=== PATIENT | female | born 1995 | race African-American/Black ===

== ENCOUNTER 2018-03-10 21:25 | Emergency (ER) | payer BC, OTHER ==
[2018-03-10 22:43] LABS: Urine Blood 2+ (NEG); Urine Glucose NEGATIVE (NEG); Urine Protein TRACE (NEG); Urine Specific Gravity 1.025 (1.005-1.030); Urine pH 5.5 (5.0-7.0)
[2018-03-10] MEDS ORDERED: NA CHLORIDE 0.9% 1,000 ML ONE (23:35)
[2018-03-10] MEDS ORDERED: IBUPROFEN 200 MG TAB PO ONE (23:36)
[2018-03-11] LABS: Absolute Lymphocytes (CBC) 1.5 K/uL (0.7-4.9); Absolute Monocytes 0.3 K/uL (0.1-1.3); Absolute Neutrophil 6.3 K/uL (1.8-8.0); Basophils % 0.4 % (0-1.3); Eosinophils % 0.4 % (0-4.4); Hematocrit 36.3 % (36.0-45.0); Lymphocytes % 18.7 % (15.3-44.8); MCH 26.4 pg (27.0-35.0); MCV 81.7 fL (80-100); MPV 8.4 fL (7.6-11.3); Monocytes % 3.2 % (3.3-12.3); RBC Red Blood Cell Count 4.44 M/uL (3.86-4.86)
[2018-03-11 00:12] LABS: Potassium 3.4 mEq/L (3.6-5.0)
[2018-03-11 00:24] LABS: Urine Bacteria <20 /HPF (<20); Urine Culture Reflex Order REFLEXED
--- NOTE | 2018-03-11 01:20 | EDPHYS ---
Physician Documentation [facility] Name: Олег Newby Age: 22 yrs Sex: Female : 1995 Arrival Date: 03/10/2018 Time: 21:26 Bed 14 Private MD: ED Physician Abdelrahman Meyers HPI: 03/11 01:14 This 22 yrs old Black Female presents to ER via Ambulatory with complaints of Headache, rn Vomiting. 01:14 The patient complains of pain to the forehead. The patient describes the headache as rn aching. Onset: The symptoms/episode began/occurred this morning. Associated signs and symptoms: Pertinent positives: fever, nausea, vomiting, weakness, Pertinent negatives: altered mental status, dizziness, neck stiffness, paresthesias, rash, sinus tenderness, vision changes, vision loss, vertigo. Severity of symptoms: At its worst the pain was mild, in the emergency department the pain has improved. The patient has not experienced similar symptoms in the past. The patient has not recently seen a physician. Reports fever/chills/nausea/vomiting/congestion/back pain, began today, currently no headache/neck pain/abd pain. . 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 - Social history:: Smoking status: Patient/guardian denies using tobacco. - Ebola Screening: : No symptoms or risks identified at this time. - Family history:: not pertinent. - Hospitalizations: : No recent hospitalization is reported. ROS: 03/11 01:14 Constitutional: Negative for weight loss Eyes: Negative for injury, pain, redness, and consumer attorney, ENT: Negative for injury, pain, and discharge, Neck: Negative for injury, pain, and swelling, Cardiovascular: Negative for chest pain, palpitations, and edema, Respiratory: Negative for shortness of breath, cough, wheezing, and pleuritic chest pain, Abdomen/GI: Negative for abdominal pain constipation, Back: Negative for injury MS/Extremity: Negative for injury and deformity, Skin: Negative for injury, rash, and discoloration, Neuro: Negative for numbness, tingling, and seizure. Exam: 01:14 Constitutional: This is a well developed, well nourished patient who is awake, alert, rn and in no acute distress. Head/Face: Normocephalic, atraumatic. Eyes: Pupils equal round and reactive to light, extra-ocular motions intact. Lids and lashes normal. Conjunctiva and sclera are non-icteric and not injected. Cornea within normal limits. Periorbital areas with no swelling, redness, or edema. ENT: Nares patent. No nasal discharge, no septal abnormalities noted. Oropharynx with no redness, swelling, or masses, exudates, or evidence of obstruction, uvula midline. Mucous membranes moist. Neck: Trachea midline, no thyromegaly or masses palpated, and no cervical lymphadenopathy. Supple, full range of motion without nuchal rigidity, or vertebral point tenderness. No Meningismus. Cardiovascular: Regular rate and rhythm with a normal S1 and S2. No gallops, murmurs, or rubs. Normal PMI, no JVD. No pulse deficits. Respiratory: Lungs have equal breath sounds bilaterally, clear to auscultation and percussion. No rales, rhonchi or wheezes noted. No increased work of breathing, no retractions or nasal flaring. Abdomen/GI: Soft, non-tender, with normal bowel sounds. No distension or tympany. No guarding or rebound. No evidence of tenderness throughout. Back: No spinal tenderness. No costovertebral tenderness. Full range of motion. Skin: Warm, dry with normal turgor. Normal color with no rashes, no lesions, and no evidence of cellulitis. MS/ Extremity: Pulses equal, no cyanosis. Neurovascular intact. Full, normal range of motion. Equal circumference. Neuro: Awake and alert, GCS 15, oriented to person, place, time, and situation. Cranial nerves II-XII grossly intact. Motor strength 5/5 in all extremities. Sensory grossly intact. Cerebellar exam normal. Normal gait. Vital Signs: 03/10 21:42 BP 124 / 79; Pulse 101; Resp 18; Temp 102.7(O); Pulse Ox 98% on R/A; Weight 90.72 kg; lp1 Height 5 ft. 6 in. (167.64 cm); Pain 10/10; 03/11 00:01 BP 128 / 66; Pulse 77; Resp 18 S; Pulse Ox 99% on R/A; bb 01:50 BP 113 / 67; Pulse 70; Resp 16 S; Temp 97.7(O); Pulse Ox 95% on R/A; Pain 2/10; bb 03/10 21:42 Body Mass Index 32.28 (90.72 kg, 167.64 cm) lp1 [place] Coma Score: 01:14 Eye Response: spontaneous(4). Verbal Response: oriented(5). Motor Response: obeys rn commands(6). Total: 15. MDM: 03/10 23:11 Patient medically screened. rn 03/11 01:14 Differential diagnosis: migraine, tension headache, vasomotor headache, viral syndrome, rn mono, flu, strep, UTI. 01:17 Data reviewed: vital signs, nurses notes, lab test result(s), and as a result, I will consumer attorney patient. Counseling: I had a detailed discussion with the patient and/or guardian regarding: the historical points, exam findings, and any diagnostic results supporting the discharge/admit diagnosis, lab results, the need for outpatient follow up, to return to the emergency department if symptoms worsen or persist or if there are any questions or concerns that arise at home. Response to treatment: the patient's symptoms have markedly improved after treatment, and as a result, I will discharge patient. Special discussion: I discussed with the patient/guardian in detail that at this point there is no indication for admission to the hospital. It is understood, however, that if the symptoms persist or worsen the patient needs to return immediately for re-evaluation. ED course: Pt feels improved, sleeping comfortably, no signs of meningitis, will dc home as viral syndrome vs early/undifferentiated syndrome, return precautions given and understood. . 03/10 22:41 Order name: Urine Dipstick--Ancillary (enter results); Complete Time: 23:12 eb 03/10 22:41 Order name: Urine --Ancillary (enter results); Complete Time: 23:12 eb 03/10 23:16 Order name: Strep; Complete Time: 00:23 rn 03/10 23:16 Order name: Flu; Complete Time: 00:23 rn 03/10 23:16 Order name: [place] Screen Profile; Complete Time: 01:09 rn 03/10 23:16 Order name: CBC with Diff; Complete Time: 00:13 rn 03/10 23:16 Order name: IV Start; Complete Time: 23:52 rn 03/10 23:16 Order name: Basic Metabolic Panel; Complete Time: 00:13 rn 03/10 23:16 Order name: Procalcitonin; Complete Time: 01:09 rn 03/10 23:16 Order name: Urine Microscopic Only; Complete Time: 01:09 03/11 00:34 Order name: Throat Culture EDPR 03/11 00:34 Order name: Urine Culture EDPR Administered Medications: 03/10 23:37 Drug: Motrin 800 mg Route: PO; 03/11 01:51 Follow up: Response: Pain is decreased 03/10 23:51 Drug: NS 0.9% 1000 ml Route: IV; Rate: 1000 ml; Site: left antecubital; 03/11 01:30 Follow up: IV Status: Completed infusion; IV Intake: 1000ml bb Disposition: 03/11/18 01:18 Discharged to Home. Impression: Fever, unspecified, Viral Syndrome. - Condition is Stable. - Discharge Instructions: Fever, Adult, Viral Infections. - Medication Reconciliation Form, Thank You Letter, Antibiotic Education, Prescription Opioid Use form. - Follow up: Private Physician; When: As needed; Reason: Recheck today's complaints, Re-evaluation by your physician. - Problem is new. - Symptoms have improved. Signatures: Dispatcher [employer] EDMS Cheli Donahue RN RN bb Nieto, Roman, MD MD rn Pena, Laura, RN RN lp1 Corrections: (The following items were deleted from the chart) 01:16 01:14 Constitutional: This is a well developed, well nourished patient who is awake, rn alert, and in no acute distress. Head/Face: Normocephalic, atraumatic. Eyes: Pupils equal round and reactive to light, extra-ocular motions intact. Lids and lashes normal. Conjunctiva and sclera are non-icteric and not injected. Cornea within normal limits. Periorbital areas with no swelling, redness, or edema. Neck: Trachea midline, no thyromegaly or masses palpated, and no cervical lymphadenopathy. Supple, full range of motion without nuchal rigidity, or vertebral point tenderness. No Meningismus. Cardiovascular: Regular rate and rhythm with a normal S1 and S2. No gallops, murmurs, or rubs. Normal PMI, no JVD. No pulse deficits. Respiratory: Lungs have equal breath sounds bilaterally, clear to auscultation and percussion. No rales, rhonchi or wheezes noted. No increased work of breathing, no retractions or nasal flaring. Abdomen/GI: Soft, non-tender, with normal bowel sounds. No distension or tympany. No guarding or rebound. No evidence of tenderness throughout. Skin: Warm, dry with normal turgor. Normal color with no rashes, no lesions, and no evidence of cellulitis. MS/ Extremity: Pulses equal, no cyanosis. Neurovascular intact. Full, normal range of motion. Equal circumference. Neuro: Awake and alert, GCS 15, oriented to person, place, time, and situation. Cranial nerves II-XII grossly intact. Motor strength 5/5 in all extremities. Sensory grossly intact. Cerebellar exam normal. Normal gait. rn 01:16 01:14 Constitutional: This is a well developed, well nourished patient who is awake, rn alert, and in no acute distress. Head/Face: Normocephalic, atraumatic. Eyes: Pupils equal round and reactive to light, extra-ocular motions intact. Lids and lashes normal. Conjunctiva and sclera are non-icteric and not injected. Cornea within normal limits. Periorbital areas with no swelling, redness, or edema. Neck: Trachea midline, no thyromegaly or masses palpated, and no cervical lymphadenopathy. Supple, full range of motion without nuchal rigidity, or vertebral point tenderness. No Meningismus. Cardiovascular: Regular rate and rhythm with a normal S1 and S2. No gallops, murmurs, or rubs. Normal PMI, no JVD. No pulse deficits. Respiratory: Lungs have equal breath sounds bilaterally, clear to auscultation and percussion. No rales, rhonchi or wheezes noted. No increased work of breathing, no retractions or nasal flaring. Abdomen/GI: Soft, non-tender, with normal bowel sounds. No distension or tympany. No guarding or rebound. No evidence of tenderness throughout. Back: No spinal tenderness. No costovertebral tenderness. Full range of motion. Skin: Warm, dry with normal turgor. Normal color with no rashes, no lesions, and no evidence of cellulitis. MS/ Extremity: Pulses equal, no cyanosis. Neurovascular intact. Full, normal range of motion. Equal circumference. Neuro: Awake and alert, GCS 15, oriented to person, place, time, and situation. Cranial nerves II-XII grossly intact. Motor strength 5/5 in all extremities. Sensory grossly intact. Cerebellar exam normal. Normal gait. rn 01:54 01:18 03/11/2018 01:18 Discharged to Home. Impression: Fever, unspecified; Viral bb Syndrome. Condition is Stable. Forms are Medication Reconciliation Form, Thank You Letter, Antibiotic Education, Prescription Opioid Use. Follow up: Private Physician; When: As needed; Reason: Recheck today's complaints, Re-evaluation by your physician. Problem is new. Symptoms have improved. rn
--- NOTE | 2018-03-11 01:20 | ER ---
Nurse's Notes [facility] Name: Олег Newby Age: 22 yrs Sex: Female : 1995 Arrival Date: 03/10/2018 Time: 21:26 Bed 14 Private MD: Diagnosis: Fever, unspecified;Viral Syndrome Presentation: 03/10 21:40 Presenting complaint: Patient states: States having headache, chills, vomiting that lp1 began today; Denies any diarrhea, pain with urination, cough, congestion. Transition of care: patient was not received from another setting of care. Onset of symptoms was March 10, 2018. Risk Assessment: Do you want to hurt yourself or someone else? Patient reports no desire to harm self or others. Initial Sepsis Screen: Does the patient meet any 2 criteria? No. Patient's initial sepsis screen is negative. Does the patient have a suspected source of infection? No. Patient's initial sepsis screen is negative. Care prior to arrival: None. 21:40 Method Of Arrival: Ambulatory lp1 21:40 Acuity: BAHMAN 3 lp1 Triage Assessment: 21:43 Headache History: The patient has had previous headaches and this one is more severe lp1 than previous episodes. General: Appears in no apparent distress. Behavior is calm, cooperative. Pain: Complains of pain in forhead Pain currently is 10 out of 10 on a pain scale. Pain began gradually, Also complains of inability to concentrate. Neuro: Level of Consciousness is awake, alert, obeys commands, Gait is steady. 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 - Social history:: Smoking status: Patient/guardian denies using tobacco. - Ebola Screening: : No symptoms or risks identified at this time. - Family history:: not pertinent. - Hospitalizations: : No recent hospitalization is reported. Screenin:43 Abuse screen: Denies threats or abuse. Denies injuries from another. Nutritional lp1 screening: No deficits noted. Tuberculosis screening: No symptoms or risk factors identified. Fall Risk None identified. Assessment: 23:11 General: Appears in no apparent distress. Behavior is calm, cooperative. Pain: bb Complains of pain in head. Neuro: Level of Consciousness is awake, alert, obeys commands, Oriented to person, place, time, situation, Speech is normal. Cardiovascular: Heart tones S1 S2 present Capillary refill < 3 seconds Patient's skin is warm and dry. Pulses are all present. Edema is absent. Respiratory: Airway is patent Respiratory effort is even, unlabored, Respiratory pattern is regular, Breath sounds are clear bilaterally. GI: Abdomen is obese, Bowel sounds present X 4 quads. Abd is soft X 4 quads Reports vomiting, Patient currently denies diarrhea. : No signs and/or symptoms were reported regarding the genitourinary system. Derm: Skin is dry, Skin is normal, Skin temperature is warm. Musculoskeletal: Circulation, motion, and sensation intact. 03/11 00:00 Reassessment: Patient and/or family updated on plan of care and expected duration. Pain bb level reassessed. Patient is alert, oriented x 3, equal unlabored respirations, skin warm/dry/pink. IV site intact, patent, with fluids infusing awaiting diagnostic results. 01:49 Reassessment: Patient is alert, oriented x 3, equal unlabored respirations, skin bb warm/dry/pink. pt verbalized understanding of and agrees to plan of care discharge instructions given pt ambulated with steady gait to exit Patient states feeling better. Patient states symptoms have improved. Vital Signs: 03/10 21:42 BP 124 / 79; Pulse 101; Resp 18; Temp 102.7(O); Pulse Ox 98% on R/A; Weight 90.72 kg; lp1 Height 5 ft. 6 in. (167.64 cm); Pain 10/10; 03/11 00:01 BP 128 / 66; Pulse 77; Resp 18 S; Pulse Ox 99% on R/A; bb 01:50 BP 113 / 67; Pulse 70; Resp 16 S; Temp 97.7(O); Pulse Ox 95% on R/A; Pain 2/10; bb 03/10 21:42 Body Mass Index 32.28 (90.72 kg, 167.64 cm) lp1 [place] Coma Score: 01:14 Eye Response: spontaneous(4). Verbal Response: oriented(5). Motor Response: obeys rn commands(6). Total: 15. ED Course: 03/10 21:26 Patient arrived in ED. as 21:42 Triage completed. lp1 21:43 Arm band placed on right wrist. lp1 22:45 Initial lab(s) drawn, by me, sent to lab. Flu and/or RSV swab sent to lab. Strep swab bb sent to lab. Inserted saline lock: 20 gauge in left antecubital area, using aseptic technique. Blood collected. 23:11 Cheli Donahue RN is Primary Nurse. bb 23:11 Abdelrahman Meyers MD is Attending Physician. rn 23:11 Patient has correct armband on for positive identification. Placed in gown. Bed in low bb position. Side rails up X2. Pulse ox on. NIBP on. Warm blanket given. 03/11 01:53 No provider procedures requiring assistance completed. IV discontinued, intact, bb bleeding controlled, No redness/swelling at site. Pressure dressing applied. Administered Medications: 03/10 23:37 Drug: Motrin 800 mg Route: PO; bb 03/11 01:51 Follow up: Response: Pain is decreased bb 03/10 23:51 Drug: NS 0.9% 1000 ml Route: IV; Rate: 1000 ml; Site: left antecubital; bb 03/11 01:30 Follow up: IV Status: Completed infusion; IV Intake: 1000ml bb Intake: 01:30 IV: 1000ml; Total: 1000ml. bb Outcome: 01:18 Discharge ordered by . rn 01:54 Discharged to home ambulatory. bb 01:54 Condition: stable 01:54 Discharge instructions given to patient, Instructed on discharge instructions, follow up and referral plans. Demonstrated understanding of instructions, follow-up care. 01:54 Patient left the ED. bb Addendum: 03/15/2018 08:12 Addendum: Culture Results: Bacteria is resistant to, has intermediate sensitivity, or s s is not tested against prescribed antibiotics. Report given to CLARISSA for further evaluation and then to floral associate for follow up with patient. Phone call Attempt #1 No answer, no VM setup. Signatures: Naomi Meneses Brenda, RN VASU bb Abdlerahman Meyers MD MD rn Smirch, Shelby, RN RN Angely Arteaga RN RN lp1 Corrections: (The following items were deleted from the chart) 08:16 08:12 Addendum: Culture Results: Phone call Attempt #1 No answer, no VM setup. ss ss
[2018-03-11 02:01] VITALS: BP 113/67; TEMP 97.7; O2SAT 95
== END 2018-03-11 01:54 | disposition home or self-care (01) ==
LOC: ER 21:25
DX: B34.9 Viral infection, unspecified (principal)
CPT/HCPCS: 36415; 80048; 81003; 81015; 81025; 84145; 85025; 86308; 87070; 87077; 87081; 87086; 87088; 87186; 87804; 96360; 96361; 99284; J7030

== ENCOUNTER 2019-05-23 02:40 | Emergency (ER) | payer BC ==
--- OUTSIDE RECORDS SUMMARY | 2019-05-23 02:43 | XMS REPORT | Summary of Care ---
:1995 Author Organization [facility] Address [address], [place] [address]- Encounter [facility](KEITH) [phone] Date(s): 04/02/19 - 04/02/19 [facility] [address] [place] [id number]- [place] Discharge Disposition: Home or Self Care Attending Physician: Eugenia Garcia MD Referring Physician: Eugenia Garcia MD Vital Signs Most recent to oldest 1 2 3 [Reference Range]: Height 167.64 cm (03/26/19 3:01 PM) Blood Pressure [90-140/60-90 120/69 mmHg 129/77 mmHg 126/78 mmHg mmHg] (04/02/19 3:32 PM) (04/02/19 3:15 PM) (04/02/19 3:00 PM) Respiratory Rate [14-20 BRMIN] 18 BRMIN 20 BRMIN 16 BRMIN (04/02/19 3:32 PM) (04/02/19 3:15 PM) (04/02/19 3:00 PM) Peripheral Pulse Rate [60-100 83 bpm bpm] (04/02/19 6:40 AM) Weight 100 kg (03/26/19 3:01 PM) Body Mass Index 35.58 m2 (03/26/19 3:01 PM) Problem List Condition Effective Dates Status Health Status Informant Asthma(Confirmed)1 Resolved 1no exacerbation in over 1 year Allergies, Adverse Reactions, Alerts No Known Medication Allergies Medications acetaminophen 1,000 mg, Route: PO, ONCE, Dosing Weight 100, kg, Start date: 04/02/19 16:55:00 CDT, Stop date: 04/02/19 16:55:00 CDT Start Date: 04/02/19 Stop Date: 04/02/19 Status: Completedalbuterol 90 mcg/inh inhalation powder 2 puff, INHALATION, PRN, 0 Refill(s) Start Date: 03/26/19 Status: OrderedANES flumazenil 0.2 mg, 2 mL, Route: IVP, Drug form: INJ, PRN, Dosing Weight 100, kg, PRN Benzodiazepine Reversal, Initial dose, Start date: 04/02/19 7:30:00 CDT, Duration: 30 day, Stop date: 05/02/19 7:29:00 CDT Notes: (Same as: Romazicon) Start Date: 04/02/19 Stop Date: 04/03/19 Status: DiscontinuedANES hydrALAZINE 10 mg, 0.5 mL, Route: IVP, Drug form: INJ, Q20Min, Dosing Weight 100, kg, PRN Elevated BP, Start date: 04/02/19 7:30:00 CDT, Duration: 2 doses or times, Stop date: 04/03/19 0:00:00 CDT Notes: (Same as: Apresoline)Push over 5 minutes Start Date: 04/02/19 Stop Date: 04/03/19 Status: CompletedANES HYDROmorphone 0.5 mg, 0.25 mL, Route: IVP, Drug form: INJ, Q5Min, Dosing Weight 100, kg, PRN Pain Score 7-10, Start date: 04/02/19 7:30:00 CDT, Duration: 4 doses or times, Stop date: 04/03/19 0:00:00 CDT Notes: Same as Dilaudid Start Date: 04/02/19 Stop Date: 04/03/19 Status: CompletedANES labetalol 10 mg, 2 mL, Route: IVP, Drug form: INJ, Q5Min, Dosing Weight 100, kg, PRN Elevated BP, Start date: 04/02/19 7:30:00 CDT, Duration: 5 doses or times, Stop date: 04/03/19 0:00:00 CDT Start Date: 04/02/19 Stop Date: 04/03/19 Status: CompletedANES naloxone 0.4 mg, 1 mL, Route: IVP, Drug form: INJ, Q2MIN, Dosing Weight 100, kg, PRN Narcotic Reversal, Startdate: 04/02/19 7:30:00 CDT, Duration: 8 doses or times, Stop date: 04/03/19 0:00:00 CDT Notes: Same as Narcan Start Date: 04/02/19 Stop Date: 04/03/19 Status: CompletedANES ondansetron 4 mg, 2 mL, Route: IVP, Drug form: INJ, ONCE, Dosing Weight 100, kg, PRN Nausea & Vomiting, Start date: 04/02/19 7:30:00 CDT Notes: (Same as: Marta) MEDICATION WASTE Product Size: 4 mgProduct Wasted: ___ mg Start Date: 04/02/19 Stop Date: 04/02/19 Status: CompletedANES oxyCODONE 5 mg immediate release tablet 5 mg, 1 tab, Route: PO, Drug form: TAB, Q4H, Dosing Weight 100, kg, PRN Pain Score 4-6, Start date: 04/02/19 7:30:00 CDT, Duration: 30 day, Stop date: 7:29:00 CDT Notes: (Same as: Roxicodone) Start Date: 04/02/19 Stop Date: 04/03/19 Status: DiscontinuedceFAZolin (ANES) Route: IV, Drug form: INJ, ONCE, Stop date: 04/02/19 8:50:00 CDT Start Date: 04/02/19 Stop Date: 04/02/19 Status: CompletedceFAZolin + sterile water 20 mL 2 gm, Route: IV, PRE OP, Priority: STAT, Start date: 04/02/19 4:48:00 CDT, Duration: 1 day, Stop date: 04/03/19 4:47:00 CDT, ABX Indication: Surgical Prophylaxis Notes: (Same As: Serge Ward) MEDICATION WASTE Product Size: 1000 mgProduct Wasted: ___ mg Start Date: 04/02/19 Stop Date: 04/03/19 Status: Discontinueddexamethasone (ANES) Route: IV, Drug form: INJ, ONCE, Stop date: 04/02/19 9:10:00 CDT Start Date: 04/02/19 Stop Date: 04/02/19 Status: Completeddexmedetomidine (ANES) 200 microgram Route: IV, Drug form: INJ, Start date: 04/02/19 7:56:00 CDT, Stop date: 8:56:00 CDT Start Date: 04/02/19 Stop Date: 04/02/19 Status: CompletedfentaNYL (ANES) Route: IV, Drug form: INJ, ONCE, Stop date: 04/02/19 9:05:00 CDT Start Date: 04/02/19 Stop Date: 04/02/19 Status: Completedglycopyrrolate (ANES) Route: IV, Drug form: INJ, ONCE, Stop date: 04/02/19 13:15:00 CDT Start Date: 04/02/19 Stop Date: 04/02/19 Status: CompletedHome Medication Refill(s) 0 Start Date: 03/26/19 Status: Orderedibuprofen 600 mg, Route: PO, ONCE, Dosing Weight 100, kg, Start date: 04/02/19 16:55:00 CDT, Stop date: 04/02/19 16:55:00 CDT Start Date: 04/02/19 Stop Date: 04/02/19 Status: CompletedketAMINE (ANES) Route: IV, Drug form: INJ, ONCE, Stop date: 04/02/19 9:05:00 CDT Start Date: 04/02/19 Stop Date: 04/02/19 Status: CompletedLactated Ringers Injection IV (ANES) 1000 mL Route: IV, Total Volume: 1,000, Start date: 04/02/19 7:37:00 CDT, Stop date: 8:37:00 CDT Start Date: 04/02/19 Stop Date: 04/02/19 Status: Completedlidocaine (ANES) Route: IV, Drug form: INJ, ONCE, Stop date: 04/02/19 9:05:00 CDT Start Date: 04/02/19 Stop Date: 04/02/19 Status: Completedmidazolam (ANES) Route: IV, Drug form: SOLN, ONCE, Stop date: 04/02/19 8:50:00 CDT Start Date: 04/02/19 Stop Date: 04/02/19 Status: Completedneostigmine (ANES) Route: IV, Drug form: INJ, ONCE, Stop date: 04/02/19 13:15:00 CDT Start Date: 04/02/19 Stop Date: 04/02/19 Status: CompletedOfirmev 1,000 mg, 100 mL, Route: IV, Drug form: INJ, PRE OP, Priority: STAT, Start date : 04/02/19 4:50:00 CDT, Duration: 1 day, Stop date: 04/03/19 4:49:00 CDT Notes: Infuse over 15 minutesDo not exceed 4gm/day of acetaminophen MEDICATION WASTE ProductSize: 1000 mgProduct Wasted: ___ mg Start Date: 04/02/19 Stop Date: 04/03/19 Status: Discontinuedondansetron (ANES) Route: IV, Drug form: INJ, ONCE, Stop date: 04/02/19 13:15:00 CDT Start Date: 04/02/19 Stop Date: 04/02/19 Status: Completedpropofol (ANES) Route: IV, Drug form: INJ, ONCE, Stop date: 04/02/19 9:05:00 CDT Start Date: 04/02/19 Stop Date: 04/02/19 Status: Completedrocuronium (ANES) Route: IV, Drug form: INJ, ONCE, Stop date: 04/02/19 9:05:00 CDT Start Date: 04/02/19 Stop Date: 04/02/19 Status: Completedscopolamine 1 patch, Route: TOP, Drug form: ERFILM, PRE OP, Priority: STAT, Start date: 4:50:00 CDT, Duration: 1 day, Stop date: 04/03/19 4:49:00 CDT Notes: Change patch every 72 hours (Same as: Transderm-Scop) Start Date: 04/02/19 Stop Date: 04/02/19 Status: Completed Results Most recent to oldest [Reference Range]: 1 Neutrophils # [1.5-8.1 K/CMM] 6.0 K/CMM (04/02/19 6:31 AM) Lymphocytes # [1.0-5.5 K/CMM] 2.3 K/CMM (04/02/19 6:31 AM) Monocytes # [0.0-0.8 K/CMM] 0.4 K/CMM (04/02/19 6:31 AM) Eosinophils # [0.0-0.5 K/CMM] 0.1 K/CMM (04/02/19 6:31 AM) Basophils [0.0-1.0 %] 0.4 % (04/02/19 6:31 AM) Eosinophils [0.0-4.0 %] 0.9 % (04/02/19 6:31 AM) Hct [36.0-48.0 %] 37.5 % (04/02/19 6:31 AM) Hgb [12.0-16.0 g/dL] 12.3 g/dL (04/02/19 6:31 AM) Lymphocytes [20.0-40.0 %] 25.8 % (04/02/19 6:31 AM) MCH [27.0-31.0 pg] 26.7 pg *LOW* (04/02/19 6:31 AM) MCHC [32.0-36.0 g/dL] 32.7 g/dL (04/02/19 6:31 AM) MCV [80.0-98.0 fL] 81.7 fL (04/02/19 6:31 AM) Monocytes [2.0-12.0 %] 4.8 % (04/02/19 6:31 AM) MPV [7.4-10.4 fL] 8.2 fL (04/02/19 6:31 AM) Platelet [133-450 K/CMM] 321 K/CMM (04/02/19 6:31 AM) Segs [45.0-75.0 %] 68.1 % (04/02/19 6:31 AM) RBC [4.20-5.40 M/CMM] 4.59 M/CMM (04/02/19 6:31 AM) RDW [11.5-14.5 %] 14.8 % *HI* (04/02/19 6:31 AM) WBC [3.7-10.4 K/CMM] 8.9 K/CMM (04/02/19 6:31 AM) Immunizations No data available for this section Procedures Procedure Date Related Diagnosis Body Site Status Operation1 Completed 1left knee meniscus/ACL repair (2013) Social History Social History Type Response Substance Abuse Use: None. Alcohol Never Smoking Status Never smoker; Type: Cigarettes; Exposure to Tobacco Smoke None ; Cigarette Smoking Last 365 Days No; Reg Smoking Cessation Counseling No entered on: 04/02/19 Assessment and Plan No data available for this section
--- OUTSIDE RECORDS SUMMARY | 2019-05-23 02:43 | XMS REPORT | Continuity of Care Document ---
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 delivery 018 [facility] 39 weeks Active Finding 10/28/[address] [facility] gestation of 018 [facility] Asthma1 Resolved Problem 04/04/2019 no [facility] exacerbation Medical in over 1 year Center Medications Medication Details Route Status Patient Ordering Order Source Instructions Provider Date Ibuprofen 600 mg, Route: Inactive [facility] PO, ONCE, 2019 Medical Dosing Weight Center 100, kg, Start date: 04/02/19 16:55:00 CDT, Stop date: 04/02/19 16:55:00 CDT Acetaminophen 1,000 mg, Inactive [facility] Route: PO, 2019 Medical ONCE, Dosing Center Weight 100, kg, Start date: 04/02/19 16:55:00 CDT, Stop date: 04/02/19 16:55:00 CDT glycopyrrolate Route: IV, Drug Inactive [facility] (ANES) form: INJ, 2018 Medical ONCE, Stop Center date: 04/02/19 13:15:00 CDT ondansetron Route: IV, Drug Inactive [facility] (ANES) form: INJ, 2018 Medical ONCE, Stop Center date: 04/02/19 13:15:00 CDT neostigmine Route: IV, Drug Inactive [facility] (ANES) form: INJ, 2018 Medical ONCE, Stop Center date: 04/02/19 13:15:00 CDT dexamethasone Route: IV, Drug Inactive [place] (ANES) form: INJ, 2018 Medical ONCE, Stop Center date: 04/02/19 9:10:00 CDT lidocaine (ANES) Route: IV, Drug Inactive [facility] form: INJ, 2018 Medical ONCE, Stop Center date: 04/02/19 9:05:00 CDT fentaNYL (ANES) Route: IV, Drug Inactive [facility] form: INJ, 2018 Medical ONCE, Stop Center date: 04/02/19 9:05:00 CDT ketAMINE (ANES) Route: IV, Drug Inactive [facility] form: INJ, 2018 Medical ONCE, Stop Center date: 04/02/19 9:05:00 CDT rocuronium Route: IV, Drug Inactive [place] (ANES) form: INJ, 2018 Medical ONCE, Stop Center date: 04/02/19 9:05:00 CDT propofol (ANES) Route: IV, Drug Inactive [facility] form: INJ, 2018 Medical ONCE, Stop Center date: 04/02/19 9:05:00 CDT midazolam (ANES) Route: IV, Drug Inactive [facility] form: SOLN, 2018 Medical ONCE, Stop Center date: 04/02/19 8:50:00 CDT ceFAZolin (ANES) Route: IV, Drug Inactive [facility] form: INJ, 2018 Medical ONCE, Stop Center date: 04/02/19 8:50:00 CDT dexmedetomidine Route: IV, Drug Inactive [facility] (ANES) 200 form: INJ, 2018 Medical microgram Start date: Center 04/02/19 7:56:00 CDT, Stop date: 04/02/19 8:56:00 CDT Lactated Ringers Route: IV, Inactive [facility] Injection IV Total Volume: 2019 Medical (ANES) 1000 mL 1,000, Start Center date: 04/02/19 7:37:00 CDT, Stop date: 04/02/19 8:37:00 CDT Ondansetron 4 mg, 2 mL, Inactive [facility] Route: IVP, 2019 Medical Drug form: INJ, Center ONCE, Dosing Weight 100, kg, PRN Nausea & Vomiting, Start date: 04/02/19 7:30:00 CDTNotes: (Same as: Zofran) MEDICATION WASTE Product Size: 4 mg Product Wasted: ___ mg Naloxone 0.4 mg, 1 mL, No Longer [place] Route: IVP, Active 2018 Medical Drug form: INJ, Center Q2MIN, Dosing Weight 100, kg, PRN Narcotic Reversal, Start date: 04/02/19 7:30:00 CDT, Duration: 8 doses or times, Stop date: 04/03/19 0:00:00 CDTNotes: Same as Narcan Flumazenil 0.2 mg, 2 mL, No Longer [place] Route: IVP, Active 2018 Medical Drug form: INJ, Center PRN, Dosing Weight 100, kg, PRN Benzodiazepine Reversal, Initial dose, Start date: 04/02/19 7:30:00 CDT, Duration: 30 day, Stop date: 05/02/19 7:29:00 CDTNotes: (Same as: Romazicon) Hydromorphone 0.5 mg, 0.25 No Longer [place] mL, Route: IVP, Active 2018 Medical Drug form: INJ, Center Q5Min, Dosing Weight 100, kg, PRN Pain Score 7-10, Start date: 04/02/19 7:30:00 CDT, Duration: 4 doses or times, Stop date: 04/03/19 0:00:00 CDTNotes: Same as Dilaudid Oxycodone 5 mg, 1 tab, No Longer [place] Hydrochloride 5 Route: PO, Drug Active 2019 Medical MG Oral Tablet form: TAB, Q4H, Center Dosing Weight 100, kg, PRN Pain Score 4-6, Start date: 04/02/19 7:30:00 CDT, Duration: 30 day, Stop date: 05/02/19 7:29:00 CDTNotes: (Same as: Roxicodone) Labetalol 10 mg, 2 mL, No Longer [place] Route: IVP, Active 2018 Medical Drug form: INJ, Center Q5Min, Dosing Weight 100, kg, PRN Elevated BP, Start date: 04/02/19 7:30:00 CDT, Duration: 5 doses or times, Stop date: 04/03/19 0:00:00 CDT Hydralazine 10 mg, 0.5 mL, No Longer [facility] Route: IVP, Active 2018 Medical Drug form: INJ, Center Q20Min, Dosing Weight 100, kg, PRN Elevated BP, Start date: 04/02/19 7:30:00 CDT, Duration: 2 doses or times, Stop date: 04/03/19 0:00:00 CDTNotes: (Same as: Apresoline) Push over 5 minutes scopolamine 1 patch, Route: Inactive [place] TOP, Drug form: 2019 Medical ERFILM, PRE OP, Center Priority: STAT, Start date: 04/02/19 4:50:00 CDT, Duration: 1 day, Stop date: 04/03/19 4:49:00 CDTNotes: Change patch every 72 hours (Same as: Transderm-Scop) Ofirmev 1,000 mg, 100 No Longer [facility] mL, Route: IV, Active 2018 Medical Drug form: INJ, Center PRE OP, Priority: STAT, Start date: 04/02/19 4:50:00 CDT, Duration: 1 day, Stop date: 04/03/19 4:49:00 CDTNotes: Infuse over 15 minutes Do not exceed 4gm/day of acetaminophen MEDICATION WASTE Product Size: 1000 mg Product Wasted: ___ mg ceFAZolin + 2 gm, Route: No Longer [facility] sterile water 20 IV, PRE OP, Active 2018 Medical mL Priority: STAT, Center Start date: 04/02/19 4:48:00 CDT, Duration: 1 day, Stop date: 04/03/19 4:47:00 CDT, ABX Indication: Surgical ProphylaxisNote s: (Same As: Ancef Kefzol) MEDICATION WASTE Product Size: 1000 mg Product Wasted: ___ mg Home Medication Refill(s) 0 Active [facility] 2019 Medical Center 200 ACTUAT 2 puff, Active [facility] Albuterol 0.09 INHALATION, 2019 Medical MG/ACTUAT Dry PRN, 0 [place] Powder Inhaler Refill(s) Tramadol Hcl EVERY [address] 2018 [facility] Albuterol DAILY Active St[facility] Sulfate 2018 [facility] [place] Iron DAILY Active St[facility] Carb,Gl/Fa/B12/C 2018 [facility] /Docusate [place] Allergies, Adverse Reactions, Alerts Substance Category Reaction Severity Reaction Status Date Comments Source type Reported No Known Assertion Drug [facility] Medication allergy Medical Allergies Center Immunizations Immunization Date Given Site Status Last Comments Source Updated Influenza Adult 10/28/[address] [facility] [place] Tdap Vaccine 10/28/[address] [facility] [place] Results Order Name Results Value Reference Date Interpretation Comments Source Range HEMATOLOGY MPV 8.2 7.4 - 10.4 04/02 [facility] HEMATOLOGY Hct 37.5 36.0 - 04/02 [facility] 48.0 [facility] HEMATOLOGY Hgb 12.3 12.0 - 04/02 [facility] 16.0 [facility] HEMATOLOGY MCH 26.7 27.0 - 04/02 [facility] 31.0 [facility] HEMATOLOGY MCV 81.7 80.0 - 04/02 [facility] 98.0 [facility] HEMATOLOGY MCHC 32.7 32.0 - 04/02 [facility] 36.0 [facility] HEMATOLOGY RDW 14.8 11.5 - 04/02 [facility] 14.5 [facility] HEMATOLOGY Platelet 321 133 - 450 04/02 2018 [facility] HEMATOLOGY RBC 4.59 4.20 - 04/02 [place] 5.40 [facility] HEMATOLOGY WBC 8.9 3.7 - 10.4 04/02 [facility] HEMATOLOGY Lymphocytes # 2.3 1.0 - 5.5 04/02 [facility]2018 [facility] HEMATOLOGY Monocytes # 0.4 0.0 - 0.8 04/02 [facility] HEMATOLOGY Eosinophils 0.9 0.0 - 4.0 04/02 [facility]2018 [facility] HEMATOLOGY Eosinophils # 0.1 0.0 - 0.5 04/02 [facility]2018 [facility] HEMATOLOGY Segs 68.1 45.0 - 04/02 [place] 75.0 /2019 [facility] HEMATOLOGY Lymphocytes 25.8 20.0 - 04/02 [facility] 40.0 2019 [facility] HEMATOLOGY Neutrophils # 6.0 1.5 - 8.1 04/[address] HEMATOLOGY Basophils 0.4 0.0 - 1.0 04/[address] HEMATOLOGY Monocytes 4.8 2.0 - 12.0 04/[address] Laboratory Rapid Plasma Rapid 10/27 [facility]. Studies Reagin Plasma /2017 [facility] Reagin [place] Laboratory White Blood 9.1 4.3 - 10.9 10/27 [facility] Studies Count /2017 [facility] [place] [facility] Red Cell 16.2 12.1 - 10/27 [facility]. Studies Distribution 15.2 [facility] - Width [place] Laboratory Red Blood 3.96 3.86 - 10/27 [facility]. Studies Count 4.86 [facility] [place] [facility] Platelet 284 152 - 406 10/27 [facility]. Studies Count [facility] [place] [facility] Neutrophils % 72.3 41.7 - 10/27 [facility]. Studies 73.7 /2017 [facility] [place] Laboratory Monocytes % 4.9 3.3 - 12.3 10/27 [facility]. Studies /2017 [facility] [place] Laboratory Mean Platelet 8.2 7.6 - 11.3 10/27 [facility]. Studies Volume /2017 [facility] [place] Laboratory Mean 77.5 80 - 100 10/27 [facility] Studies Corpuscular /2017 [facility] Volume [place] Laboratory Mean 32.9 32.0 - 10/27 [facility] Studies Corpuscular 36.0 [facility] Hemoglobin [place] [facility] Laboratory Mean 25.5 27.0 - 10/27 [facility]. Studies Corpuscular 35.0 [facility] Hemoglobin [place] Laboratory Lymphocytes % 21.7 15.3 - 10/27 [facility]. Studies 44.8 /2017 [facility] [place] Laboratory Hemoglobin 10.1 12.0 - 10/27 [facility]. Studies 15.0 [facility] [place] [facility] Hematocrit 30.7 36.0 - 10/27 [facility]. Studies 45.0 [facility] [place] [facility] Eosinophils % 0.7 0 - 4.4 10/27 [facility]. Studies /2017 [facility] [place] [facility] Basophils % 0.4 0 - 1.3 10/27 [facility]. Studies /2017 [facility] [place] Laboratory Absolute 6.6 1.8 - 8.0 10/27 [facility]. Studies Neutrophil [facility] [place] Laboratory Absolute 0.5 0.1 - 1.3 10/27 [facility]. Studies Monocytes [facility] - (CBC) [place] Laboratory Absolute 2.0 0.7 - 4.9 10/27 [facility]. Studies Lymphocytes [facility] (CBC) [place] Laboratory Absolute 0.1 0 - 0.5 10/27 St. Studies Eosinophils [facility] - (CBC) [place] Laboratory Absolute 0.0 0 - 0.5 10/27 [facility]. Studies Basophils [facility] (CBC) [place] Laboratory Rapid Plasma Rapid 10/27 [facility] Studies Reagin Titer Plasma /2017 [facility] Reagin [place] Titer Laboratory Urine WBC Urine WBC 10/27 [facility]. Studies [facility] [place] Laboratory Urine Urine 10/27 [facility] Studies Squamous Squamous [facility] - Epithelial Epithelial [place] Cells Cells Laboratory Urine RBC Urine RBC 10/[address] [facility] [address] Studies [facility] [place] Laboratory Urine Culture Urine 10/27 [facility] Studies Reflexed Culture /2017 [facility] Reflexed [place] Laboratory Urine >50 10/27 [facility] Studies Bacteria [facility] [place] Laboratory Urine pH 6.5 10/27 [facility]. Studies [facility] [place] Laboratory Urine 0.2 10/27 [facility] Studies Urobilinogen /2017 [facility] [place] Laboratory Urine Total Urine Total 10/27 [facility] Studies Protein Protein /2017 [facility] [place] Laboratory Urine 1.025 10/27 [facility]. Studies Specific /2017 [facility] [place] Laboratory Urine Nitrite Urine 10/27 [facility] Studies Nitrite [facility] [place] Laboratory Urine Urine 10/27 [facility]. Studies Leukocyte Leukocyte /2017 [facility] - Esterase Esterase [place] Laboratory Urine Ketones Urine 10/27 [facility]. Studies Ketones /2017 [facility] [place] Laboratory Urine Glucose Urine 10/27 [facility]. Studies Glucose [facility] [place] Laboratory Urine Color Urine Color 10/27 [facility]. Studies [facility] [place] Laboratory Urine Blood Urine Blood 10/27 [facility]. Studies /2017 [facility] [place] Laboratory Urine Urine 10/[address] Studies Bilirubin Bilirubin [facility] [place] Laboratory Urine Urine 10/[address] [facility] [address] Studies Appearance Appearance [facility] [place] Pathology Reports No Data Provided for This Section Diagnostic Reports No Data Provided for This Section Consultation Notes No Data Provided for This Section Discharge Summaries No Data Provided for This Section History and Physicals No Data Provided for This Section Vital Signs Vital Sign Value Date Comments Source Respitory Rate 18 04/02/2019 [facility] Systolic (mm Hg) 120 04/02/2019 [facility] Diastolic (mm Hg) 69 04/02/2019 [facility] Respitory Rate 20 04/02/2019 [facility] Systolic (mm Hg) 129 04/02/2019 [facility] Diastolic (mm Hg) 77 04/02/2019 [facility] Respitory Rate 16 04/02/2019 [facility] Systolic (mm Hg) 126 04/02/2019 [facility] Diastolic (mm Hg) 78 04/02/2019 [facility] Heart Rate 83 04/02/2019 [facility] BMI Calculated 35.58 03/26/2019 [facility] Height 167.64 cm 03/26/2019 [facility] Weight 100 03/26/2019 [facility] Temperature Oral (F) 97.5 F 10/28/[address] [facility] [place] Heart Rate 92 10/28/[address] [facility] [place] Respitory Rate 16 10/28/[address] [facility] [place] Systolic (mm Hg) 118 10/28/[address] [facility] [place] Diastolic (mm Hg) 77 10/28/[address] [facility] [place] Height 66 10/27/[address] [facility] [place] Weight 234.00 10/27/[address] [facility] [place] Encounters Location Location Encounter Encounter Reason Attending ADM DC Status Source Details Type Number For Provider Date Date Visit PREETI Lowery. Registered [id number] 08/[address] [facility] Ref[facility]2016 [facility] Registered [id number] 10/[address] [facility]2017 [facility] [place] [facility] Discharged [id number] 10/27 10/[address] [facility]2017 [facility] [place] [facility] [id number] Madi 11/27 11/27 Justin Ordonez /2018 [facility] Day Surgery [id number] Eugenia 04/02 04/03 Elgin Anderson Bl[facility]olb /2018 [facility] Procedures Procedure Code Date Perfomer Comments Source Operation<sup>1< [id number] left knee [facility] /sup> meniscus/ACL Medical repair (2013) Center Assessment and Plan No Data Provided for This Section Plan of Care Plan of Care Date Source Instructions 10/28/[address] [facility] [place] DI for Labor and Delivery, Vaginal Instructions 10/28/[address] [facility] [place] DI for Labor and Delivery, Vaginal Social History Social History Date Source Social History TypeResponse 03/26/2019 [facility] Substance Abuse Use: None. Alcohol Never Smoking Status Never smoker; Type: Cigarettes; Exposure to Tobacco Smoke None; Cigarette Smoking Last 365 Days No; Reg Smoking Cessation Counseling No entered on: 04/02/19 No data available for this 11/27/2018 [facility] section Query Response Date Recorded Comment 10/28/[address] [facility] [place] Alcohol Use? No October 27, 2017 3:58am CD- Drugs? No October 27, 2017 3:58am Query Response Start Date Stop Date Smoking Status Never smoker Family History Value Date Source Query Response Instance Date Recorded Comment 10/28/[address] [facility] [place] Nurses notes asthma Sister October 27, 2017 3:58am Medical History Hypertension Other (see notes) Sister October 27, 2017 3:58am Medical History Hypertension Father October 27, 2017 3:58am Advance Directives Order Name Results Value Date Source Advance Directives Advance Directives Advance Directive Response Recorded Date/Time 10/28/[address] Does Patient Have Living Will [place] No October 27, 2017 3:58am Durable Power of Environmental Advisor for Health Care No October 27, 2017 3:58am Would you like additional information No October 27, 2017 3:58am Functional Status No Data Provided for This Section
--- OUTSIDE RECORDS SUMMARY | 2019-05-23 02:44 | XMS REPORT | Summary of Care ---
:1995 Author Organization [facility] Address [address] [place], [place] [address]- Encounter HQ Encntr_alias(FIN) [id number] Date(s): 11/26/18 - 11/26/18 [facility] [id number] [place] [id number]- Discharge Disposition: Home or Self Care Attending Physician: Madi Ordonez MD Referring Physician: Madi Ordonez MD Vital Signs No data available for this section Problem List No data available for this section Allergies, Adverse Reactions, Alerts No data available for this section Medications No data available for this section Results No data available for this section Immunizations No data available for this section Procedures No data available for this section Social History No data available for this section Assessment and Plan No data available for this section
--- OUTSIDE RECORDS SUMMARY | 2019-05-23 02:44 | XMS REPORT ---
:1995 [facility] Address [address] [place] [address] Care Team Providers Name Role Phone Unavailable Unavailable Unavailable Problems This patient has no known problems. Allergies, Adverse Reactions, Alerts This patient has no known allergies or adverse reactions. Medications This patient has no known medications. Encounters Start End Encounter Admission Attending Care Care Encounter Date/Time Date/Time Type Type Clinicians Facility Department ID 2019-03-16 Outpatient [facility] 7502 12:38:41 2019-03-02 Outpatient [facility] 7503 11:20:11 2019-04-02 2019-04-02 Outpatient [facility] 7501 05:56:00 05:56:00
--- NOTE | 2019-05-23 03:44 | ER ---
Nurse's Notes [facility] [place] [facility] Name: Олег Newby Age: 24 yrs Sex: Female : 1995 Arrival Date: 05/23/2019 Time: 02:46 Bed 14 Private MD: Diagnosis: Dental caries;Dental caries on smooth surface penetrating into dentin Presentation: 05/23 03:02 Presenting complaint: Mother states: upper and lower mouth pain on left side x 1 day. aa1 Transition of care: patient was not received from another setting of care. Onset of symptoms was May 22, 2019. Risk Assessment: Do you want to hurt yourself or someone else? Patient reports no desire to harm self or others. Initial Sepsis Screen: Does the patient meet any 2 criteria? No. Patient's initial sepsis screen is negative. Does the patient have a suspected source of infection? No. Patient's initial sepsis screen is negative. Care prior to arrival: None. 03:02 Method Of Arrival: Ambulatory aa1 03:02 Acuity: BAHMAN 5 aa1 Triage Assessment: 03:02 General: Appears in no apparent distress. comfortable, Behavior is calm, cooperative, aa1 appropriate for age. 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 - Social history:: Smoking status: Patient/guardian denies using tobacco. - Ebola Screening: : No symptoms or risks identified at this time. Screenin:30 Abuse screen: Denies threats or abuse. Nutritional screening: No deficits noted. jb4 Tuberculosis screening: No symptoms or risk factors identified. Fall Risk None identified. Assessment: 03:30 General: Appears in no apparent distress. uncomfortable, Behavior is calm, cooperative, jb4 appropriate for age. Pain: Complains of pain in mouth Pain does not radiate. Pain currently is 10 out of 10 on a pain scale. Neuro: Level of Consciousness is awake, alert, obeys commands, Oriented to person, place, time, situation. Cardiovascular: Patient's skin is warm and dry. Respiratory: Airway is patent Respiratory effort is even, unlabored, Respiratory pattern is regular, symmetrical. GI: No deficits noted. No signs and/or symptoms were reported involving the gastrointestinal system. : No deficits noted. No signs and/or symptoms were reported regarding the genitourinary system. EENT: Reports pain in mouth. Derm: Skin is intact, Skin is pink, warm \T\ dry. Musculoskeletal: Circulation, motion, and sensation intact. Range of motion: intact in all extremities. 04:11 Reassessment: Patient appears in no apparent distress at this time. Patient and/or jb4 family updated on plan of care and expected duration. Pain level reassessed. Patient is alert, oriented x 3, equal unlabored respirations, skin warm/dry/pink. Pt verbalized understanding of d/c and follow up instructions, ambulated out with children, steady gait. Pt refused vitals prior to leaving, ED. Vital Signs: 03:02 BP 132 / 80; Pulse 69; Resp 18; Temp 97.7; Pulse Ox 98% on R/A; Weight 99.79 kg; Height aa1 5 ft. 6 in. (167.64 cm); Pain 10/10; 03:02 Body Mass Index 35.51 (99.79 kg, 167.64 cm) aa1 ED Course: 02:46 Patient arrived in ED. mr 03:02 Arm band placed on right wrist. aa1 03:05 Triage completed. aa1 03:08 Kalen Tay MD is Attending Physician. gs 03:30 Patient has correct armband on for positive identification. Bed in low position. Call jb4 light in reach. Side rails up X 1. 03:52 David Petit RN is Primary Nurse. jb4 04:14 No provider procedures requiring assistance completed. Patient did not have IV access jb4 during this emergency room visit. Administered Medications: 03:59 Drug: Motrin 600 mg Route: PO; jb4 04:15 Follow up: Response: No adverse reaction jb4 Outcome: 03:44 Discharge ordered by . gs 04:14 Discharged to home ambulatory, with family. jb4 04:14 Condition: stable 04:14 Discharge instructions given to patient, Instructed on discharge instructions, follow up and referral plans. medication usage, Demonstrated understanding of instructions, follow-up care, medications, Prescriptions given X 2. 04:15 Patient left the ED. jb4 Signatures: Anabel Quinn RN RN aa1 Jules Comfort David Bhat RN RN jb4 Kalen Tay MD MD
--- NOTE | 2019-05-23 03:45 | EDPHYS ---
Physician Documentation [facility] Name: Олег Newby Age: 24 yrs Sex: Female : 1995 Arrival Date: 05/23/2019 Time: 02:46 Bed 14 Private MD: ED Physician Kalen Tay HPI: 05/23 03:24 This 24 yrs old Black Female presents to ER via Ambulatory with complaints of Mouth gs Problem. 03:24 The patient presents with broken tooth/teeth, pain. The problem is located in the upper gs left third molar and lower left second molar. Onset: The symptoms/episode began/occurred 3 day(s) ago. Duration: The symptoms are continuous. Modifying factors: the symptoms are aggravated by chewing. Associated signs and symptoms: Pertinent negatives: chills, fever. Severity of symptoms: At their worst the symptoms were moderate, in the emergency department the symptoms are unchanged. The patient has experienced similar episodes in the past, a few times. 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 - Social history:: Smoking status: Patient/guardian denies using tobacco. - Ebola Screening: : No symptoms or risks identified at this time. ROS: 03:24 All other systems are negative. gs Exam: 03:24 Head/Face: Normocephalic, atraumatic. Eyes: Pupils equal round and reactive to light, gs extra-ocular motions intact. Lids and lashes normal. Conjunctiva and sclera are non-icteric and not injected. Cornea within normal limits. Periorbital areas with no swelling, redness, or edema. Neck: Trachea midline, no thyromegaly or masses palpated, and no cervical lymphadenopathy. Supple, full range of motion without nuchal rigidity, or vertebral point tenderness. No Meningismus. Chest/axilla: Normal chest wall appearance and motion. Nontender with no deformity. No lesions are appreciated. Cardiovascular: Regular rate and rhythm with a normal S1 and S2. No gallops, murmurs, or rubs. Normal PMI, no JVD. No pulse deficits. Respiratory: Lungs have equal breath sounds bilaterally, clear to auscultation and percussion. No rales, rhonchi or wheezes noted. No increased work of breathing, no retractions or nasal flaring. Abdomen/GI: Soft, non-tender, with normal bowel sounds. No distension or tympany. No guarding or rebound. No evidence of tenderness throughout. Back: No spinal tenderness. No costovertebral tenderness. Full range of motion. Skin: Warm, dry with normal turgor. Normal color with no rashes, no lesions, and no evidence of cellulitis. MS/ Extremity: Pulses equal, no cyanosis. Neurovascular intact. Full, normal range of motion. Neuro: Awake and alert, GCS 15, oriented to person, place, time, and situation. Cranial nerves II-XII grossly intact. Motor strength 5/5 in all extremities. Sensory grossly intact. Cerebellar exam normal. Normal gait. 03:24 Constitutional: The patient appears alert, awake. 03:24 ENT: Dental exam: dental caries, that is moderate, specifically in the upper left third molar (#16) and lower left third molar (#17). Vital Signs: 03:02 BP 132 / 80; Pulse 69; Resp 18; Temp 97.7; Pulse Ox 98% on R/A; Weight 99.79 kg; Height aa1 5 ft. 6 in. (167.64 cm); Pain 10/10; 03:02 Body Mass Index 35.51 (99.79 kg, 167.64 cm) aa1 MDM: 03:16 Patient medically screened. 03:24 Differential diagnosis: dental caries, dental abscess. Data reviewed: vital signs, nurses notes. Counseling: I had a detailed discussion with the patient and/or guardian regarding: the historical points, exam findings, and any diagnostic results supporting the discharge/admit diagnosis, the need for outpatient follow up. Response to treatment: There is no appreciated change of the patient's symptoms at this time. Administered Medications: 03:59 Drug: Motrin 600 mg Route: PO; jb4 04:15 Follow up: Response: No adverse reaction jb4 Disposition: 05/23/19 03:44 Discharged to Home. Impression: Dental caries, Dental caries on smooth surface penetrating into dentin. - Condition is Stable. - Discharge Instructions: Dental Caries, Adult, Managing Your Hypertension. - Prescriptions for Amoxicillin 875 mg Oral Tablet - take 1 tablet by ORAL route every 12 hours for 7 days; 14 tablet. Tylenol- Codeine #4 300-60 mg Oral Tablet - take 1 tablet by ORAL route every 6 hours As needed; 6 tablet. - Medication Reconciliation Form, Thank You Letter, Antibiotic Education, Prescription Opioid Use form. - Follow up: Private Physician; When: 2 - 3 days; Reason: Re-evaluation by your physician. Signatures: Anabel Quinn RN RN aa1 David Petit RN RN jb4 Kalen Tay MD MD gs Corrections: (The following items were deleted from the chart) 04:15 03:44 05/23/2019 03:44 Discharged to Home. Impression: Dental caries; Dental caries on jb4 smooth surface penetrating into dentin. Condition is Stable. Forms are Medication Reconciliation Form, Thank You Letter, Antibiotic Education, Prescription Opioid Use. Follow up: Private Physician; When: 2 - 3 days; Reason: Re-evaluation by your physician. gs
[2019-05-23] MEDS ORDERED: IBUPROFEN 200 MG TAB PO ONE (03:57)
[2019-05-23 04:34] VITALS: BP 132/80; TEMP 97.7; O2SAT 98
== END 2019-05-23 04:15 | disposition home or self-care (01) ==
LOC: ER 02:40
DX: K02.62 Dental caries on smooth surface penetrating into dentin (principal); J45.909 Unspecified asthma, uncomplicated
CPT/HCPCS: 99283

== ENCOUNTER 2019-08-31 10:08 | Emergency (ER) | payer BC ==
--- OUTSIDE RECORDS SUMMARY | 2019-08-31 10:10 | XMS REPORT ---
:1995 Author Organization [facility] Address [address] [place] [address] Care Team Providers Name Role Phone Unavailable Unavailable Unavailable Problems This patient has no known problems. Allergies, Adverse Reactions, Alerts This patient has no known allergies or adverse reactions. Medications This patient has no known medications. Encounters Start End Encounter Admission Attending Care Care Encounter Date/Time Date/Time Type Type Clinicians Facility Department ID 2019-03-16 Outpatient [facility] [place] [facility] [id number] 12:38:41 2019-03-02 Outpatient [facility] [id number] 11:20:11 2019-04-02 2019-04-02 Outpatient [facility] [id number] 05:56:00 05:56:00
[2019-08-31] MEDS ORDERED: ONDANSETRON 4 MG/2 ML VIAL ONE ×2 (10:58→16:01)
[2019-08-31] MEDS ORDERED: MECLIZINE HCL 12.5 MG TAB ONE (10:58)
[2019-08-31] MEDS ORDERED: NA CHLORIDE 0.9% 1,000 ML ONE (10:58)
[2019-08-31 11:29] LABS: Urine Blood TRACE (NEG); Urine Glucose NEGATIVE (NEG); Urine Protein 1+ (NEG); Urine Specific Gravity 1.025 (1.005-1.030)
--- NOTE | 2019-08-31 11:39 | RAD REPORT ---
EXAM DESCRIPTION: CT - Head Brain Wo Cont - 08/31/2019 11:07 am CLINICAL HISTORY: Nausea, vomiting, headache, chills, positive with IUD in place COMPARISON: None. TECHNIQUE: Axial 5 mm thick images of the head were obtained without IV contrast. All CT scans are performed using dose optimization technique as appropriate and may include automated exposure control or mA/KV adjustment according to patient size. FINDINGS: No intracranial hemorrhage is present but no focal mass lesion identified. No midline shif t is present. Sulcal spaces and basil cisterns are effaced or mostly effaced. Ventricles are small. A focal acute cortical based infarction is not seen. No abnormal extra-axial fluid collections. Turcios m atter- white matter differentiation is reduced. Sagittal sinuses are not clearly visualized on CT imaging. Mastoid air cells and visualized portions of the paranasal sinuses are clear. No acute bony findings. Findings discussed with referring clinician 11:25 a.m. IMPRESSION: The patient shows a mild cerebral edema pattern with no focal mass or hemorrhage. No mid line shift. No comparison imaging is available. Correlation is needed with clinical presentation.
[2019-08-31 11:53] LABS: Absolute Lymphocytes (CBC) 1.1 K/uL (0.7-4.9); Basophils % 0.3 % (0-1.3); Hematocrit 35.6 % (36.0-45.0); Lymphocytes % 17.6 % (15.3-44.8); MPV 8.3 fL (7.6-11.3); RBC Red Blood Cell Count 4.53 M/uL (3.86-4.86)
[2019-08-31 12:14] LABS: ALT/SGPT 26 U/L (12-78); AST/SGOT 14 U/L (15-37); Albumin 3.4 g/dL (3.4-5.0); Alkaline Phosphatase 141 U/L (45-117); BUN Blood Urea Nitrogen 9 mg/dL (7-18); Bicarbonate 28 mmol/L (21-32); Bilirubin Direct < 0.1 mg/dL (0-0.2); Bilirubin Total 0.1 mg/dL (0.2-1.0); Glucose Level 114 mg/dL (74-106); Lipase 92 U/L (73-393); Potassium 4.1 mmol/L (3.5-5.1); Protein, Total 7.8 g/dL (6.4-8.2); Sodium Level 138 mmol/L (136-145)
--- NOTE | 2019-08-31 13:15 | EKG ---
Test Date: 2019-08-31 Test Time: 11:33:57 Shaker Operator: DECLAN MEASUREMENT RESULTS: Intervals: Rate: 80 WV: 152 QRSD: 82 QT: 370 QTc: 426 [place]: P: 23 WV: 152 QRS: 14 T: 5 INTERPRETIVE STATEMENTS: Normal sinus rhythm Normal ECG No previous ECG available for comparison Electronically Signed On 08-31-19 13:15:19 BUGGY OPERATOR by Jose R Farias
--- NOTE | 2019-08-31 13:22 | ER ---
Nurse's Notes [facility] Name: Олег Newby Age: 24 yrs Sex: Female : 1995 Arrival Date: 08/31/2019 Time: 10:09 Bed 16 Private MD: Diagnosis: Cerebral edema Presentation: 08/31 10:20 Presenting complaint: N/V, headache, and chills x 3 days. Not tolerating fluids. Also hb reports + home test, IUD in place. Transition of care: patient was not received from another setting of care. Onset of symptoms was August 29, 2019. Risk Assessment: Do you want to hurt yourself or someone else? Patient reports no desire to harm self or others. Initial Sepsis Screen: Does the patient meet any 2 criteria? No. Patient's initial sepsis screen is negative. Does the patient have a suspected source of infection? No. Patient's initial sepsis screen is negative. Care prior to arrival: None. 10:20 Method Of Arrival: Ambulatory hb 10:20 Acuity: BAHMAN 3 hb Historical: - Allergies: 10:21 No Known Allergies; hb - Home Meds: 10:21 Albuterol Inhl [Active]; hb - PMHx: 10:21 Asthma; hb - PSHx: 10:21 ACL repair; hb - Immunization history:: Adult Immunizations up to date. - Social history:: Smoking status: Patient/guardian denies using tobacco. - Ebola Screening: : No symptoms or risks identified at this time. Screenin:17 Abuse screen: Denies threats or abuse. Denies injuries from another. Nutritional ph screening: No deficits noted. Tuberculosis screening: No symptoms or risk factors identified. Fall Risk None identified. Assessment: 11:00 General: Appears in no apparent distress. uncomfortable, obese, well groomed, Behavior ph is calm, cooperative, appropriate for age, flat, Reports chills for Denies fever. Pain: Denies pain. Neuro: Level of Consciousness is awake, alert, obeys commands, Oriented to person, place, time, situation, Reports dizziness, headache. Cardiovascular: Capillary refill < 3 seconds in bilateral fingers Patient's skin is warm and dry. Respiratory: Airway is patent Respiratory effort is even, unlabored, Respiratory pattern is regular, symmetrical. GI: Abdomen is round non-distended, Reports nausea, vomiting, Patient currently denies abdominal pain, diarrhea. : No signs and/or symptoms were reported regarding the genitourinary system. Denies burning with urination, urinary frequency. Derm: Skin is intact, is healthy with good turgor, Skin is pink, warm \\T\\ dry. Musculoskeletal: Circulation, motion, and sensation intact. Range of motion: intact in all extremities. 12:00 Reassessment: Patient appears in no apparent distress at this time. Patient and/or ph family updated on plan of care and expected duration. Pain level reassessed. Patient is alert, oriented x 3, equal unlabored respirations, skin warm/dry/pink. 13:00 Reassessment: Patient appears in no apparent distress at this time. Patient and/or ph family updated on plan of care and expected duration. Pain level reassessed. Patient is alert, oriented x 3, equal unlabored respirations, skin warm/dry/pink. 14:20 Reassessment: Patient appears in no apparent distress at this time. Patient and/or ph family updated on plan of care and expected duration. Pain level reassessed. Patient is alert, oriented x 3, equal unlabored respirations, skin warm/dry/pink. ERP at bedside for LP, 3 unsuccessful attempts, Dr Meyers notified. 14:41 Reassessment: Patient appears in no apparent distress at this time. Patient and/or ph family updated on plan of care and expected duration. Pain level reassessed. Patient is alert, oriented x 3, equal unlabored respirations, skin warm/dry/pink. Dr Meyers at bedside to attempt LP. 16:00 Reassessment: Patient appears in no apparent distress at this time. Patient and/or ph family updated on plan of care and expected duration. Pain level reassessed. Patient is alert, oriented x 3, equal unlabored respirations, skin warm/dry/pink. Pt c/o headache, ERP notified, see MAR. 17:00 Reassessment: Patient appears in no apparent distress at this time. Patient and/or ph family updated on plan of care and expected duration. Pain level reassessed. Patient is alert, oriented x 3, equal unlabored respirations, skin warm/dry/pink. Pt reports that headache and nausea have improved, states, "I still fell a little lightheaded but I feel much better than I did." Family at bedside, awaiting transfer. 18:00 Reassessment: Patient appears in no apparent distress at this time. Patient and/or ph family updated on plan of care and expected duration. Pain level reassessed. Patient is alert, oriented x 3, equal unlabored respirations, skin warm/dry/pink. 19:14 Reassessment: Patient appears in no apparent distress at this time. Patient and/or jb4 family updated on plan of care and expected duration. Pain level reassessed. Patient is alert, oriented x 3, equal unlabored respirations, skin warm/dry/pink. Provider is at the bedside explaining plan of care. 20:05 Reassessment: Patient appears in no apparent distress at this time. Patient and/or jb4 family updated on plan of care and expected duration. Pain level reassessed. Patient is alert, oriented x 3, equal unlabored respirations, skin warm/dry/pink. PT transferred by EMS to receiving facility. IV intact and patent Patient denies pain at this time. Vital Signs: 10:21 BP 142 / 82; Pulse 78; Resp 16; Temp 97.8(TE); Pulse Ox 100% ; Weight 99.79 kg; Height hb 5 ft. 6 in. (167.64 cm); Pain 10/10; 11:54 BP 126 / 84; Pulse 78; Resp 18; Pulse Ox 100% on R/A; ph 13:00 BP 120 / 84; Pulse 80; Resp 18; Pulse Ox 100% ; ph 14:00 BP 128 / 68; Pulse 86; Resp 16; Pulse Ox 99% on R/A; ph 15:27 BP 113 / 82; Pulse 82; Resp 18; Pulse Ox 100% on R/A; ph 16:29 BP 127 / 66; Pulse 95; Resp 16; Pulse Ox 100% on R/A; ph 17:30 BP 118 / 70; Pulse 85; Resp 18; Pulse Ox 99% on R/A; ph 19:00 BP 122 / 77; Pulse 95; Resp 16; Pulse Ox 97% on R/A; jb4 20:00 BP 130 / 92; Pulse 100; Resp 16; Pulse Ox 98% on R/A; jb4 10:21 Body Mass Index 35.51 (99.79 kg, 167.64 cm) ED Course: 10:09 Patient arrived in ED. rg4 10:21 Triage completed. hb 10:21 Arm band placed on. hb 10:37 Mackenzie Leal, RN is Primary Nurse. ph 10:37 Shubham Paredes NP is PHCP. pm1 10:37 Abdelrahman Meyers MD is Attending Physician. pm1 11:07 CT Head Brain wo Cont In Process Unspecified. EDMS 11:35 Inserted saline lock: 22 gauge in left antecubital area, using aseptic technique. Blood ph collected. 13:15 Patient has correct armband on for positive identification. Placed in gown. Bed in low ph position. Call light in reach. Side rails up X 1. Pulse ox on. NIBP on. Door closed. Noise minimized. Warm blanket given. Consent for a lumbar puncture explained by staff, explained by physician, signed by patient. 13:20 Mary Hillman MD is Hospitalizing Provider. pm1 14:22 Assist provider with lumbar puncture: Set up LP tray. Performed by Shubham Paredes NP ph Procedure unsuccessful. Patient tolerated well. Patient admitted, IV remains in place. 17:26 MRI - Brain Wo Cont In Process Unspecified. EDMS Administered Medications: 11:51 Drug: Zofran 4 mg Route: IVP; Site: left antecubital; ph 12:30 Follow up: Response: No adverse reaction ph 11:51 Drug: Meclizine 50 mg Route: PO; ph 12:30 Follow up: Response: No adverse reaction ph 11:51 Drug: NS 0.9% 1000 ml Route: IV; Rate: 1000 ml; Site: left antecubital; ph 13:30 Follow up: Response: No adverse reaction; IV Status: Completed infusion; IV Intake: ph 1000ml 12:51 CANCELLED (Physician Discretion): Decadron - Dexamethasone 10 mg IVP once pm1 16:13 Drug: Zofran 4 mg Route: IVP; Site: left antecubital; ph 19:09 Follow up: Response: No adverse reaction ph 16:15 Drug: morphine 4 mg Route: IVP; Site: left antecubital; ph 17:00 Follow up: Response: No adverse reaction; Pain is decreased; RASS: Alert and Calm (0) ph 16:18 Drug: Decadron - Dexamethasone 10 mg Route: IVP; Site: left antecubital; ph 17:00 Follow up: Response: No adverse reaction ph Intake: 13:30 IV: 1000ml; Total: 1000ml. ph Outcome: 13:21 Decision to Hospitalize by Provider. pm1 17:04 ER care complete, transfer ordered by . pm1 20:00 Transferred by ground EMS [facility]. to [facility], Transfer form jb4 completed. X-rays sent w/ patient. 20:00 Condition: stable 20:00 Discharge instructions given to patient, Instructed on the need for transfer, Demonstrated understanding of instructions. 20:11 Patient left the ED. jb4 Signatures: Dispatcher [employer] EDMS Mackenzie Leal, RN RN Shubham Beaver, ASHISH PNP pm1 Dora Dupree, RN RN Nichelle Nice rg4 David Petit, RN RN jb4
--- NOTE | 2019-08-31 13:23 | EDPHYS ---
Physician Documentation [facility] Name: Олег Newby Age: 24 yrs Sex: Female : 1995 Arrival Date: 08/31/2019 Time: 10:09 Bed 16 Private MD: ED Physician Abdelrahman Meyers HPI: 08/31 10:39 This 24 yrs old Black Female presents to ER via Ambulatory with complaints of Vomiting, pm1 Chills, Dizziness. 10:39 The patient presents to the emergency department with nausea, vomiting, headache and pm1 dizziness. Onset: The symptoms/episode began/occurred 3 day(s) ago. Possible causes: possible . Had one home test positive and one negative. The symptoms are aggravated by changes in position, from lying to sitting and sitting to standing. Bending head forward increases dizziness. Associated signs and symptoms: Pertinent positives: chills, Pertinent negatives: abdominal pain. Severity of symptoms: in the emergency department the symptoms are unchanged. For the past 2 months, headache and dizziness about every two weeks. 10:39 Went to two prior ERs, [facility] and in [place], [place] for headache over the past two months pm1 and was told that she had sinusitis. Historical: - Allergies: 10:21 No Known Allergies; hb - Home Meds: 10:21 Albuterol Inhl [Active]; hb - PMHx: 10:21 Asthma; hb - PSHx: 10:21 ACL repair; hb - Immunization history:: Adult Immunizations up to date. - Social history:: Smoking status: Patient/guardian denies using tobacco. - Ebola Screening: : No symptoms or risks identified at this time. ROS: 10:39 ENT: Negative for injury, pain, and discharge, Neck: Negative for injury, pain, and pm1 swelling, Cardiovascular: Negative for chest pain, palpitations, and edema. 10:39 Respiratory: Negative for shortness of breath, cough, wheezing, and pleuritic chest pain. 10:39 Back: Negative for injury and pain, : Negative for injury, bleeding, discharge, and swelling, MS/Extremity: Negative for injury and deformity, Skin: Negative for injury, rash, and discoloration. 10:39 Constitutional: Positive for chills, poor PO intake, Negative for body aches, fever. 10:39 Eyes: Positive for double vision with headaches. No double vision or vision changes with current headache, Negative for photophobia. 10:39 Abdomen/GI: Positive for nausea and vomiting, Negative for abdominal pain, diarrhea, constipation. 10:39 Neuro: Positive for dizziness, headache, Negative for numbness, seizure activity, tingling, weakness. Exam: 10:39 Constitutional: This is a well developed, well nourished patient who is awake, alert, pm1 and in no acute distress. Head/Face: Normocephalic, atraumatic. Eyes: Pupils equal round and reactive to light, extra-ocular motions intact. Lids and lashes normal. Conjunctiva and sclera are non-icteric and not injected. Cornea within normal limits. Periorbital areas with no swelling, redness, or edema. ENT: Nares patent. No nasal discharge, no septal abnormalities noted. Tympanic membranes are normal and external auditory canals are clear. Oropharynx with no redness, swelling, or masses, exudates, or evidence of obstruction, uvula midline. Mucous membranes moist. Neck: Trachea midline, no thyromegaly or masses palpated, and no cervical lymphadenopathy. Supple, full range of motion without nuchal rigidity, or vertebral point tenderness. No Meningismus. Chest/axilla: Normal chest wall appearance and motion. Nontender with no deformity. No lesions are appreciated. Cardiovascular: Regular rate and rhythm with a normal S1 and S2. No gallops, murmurs, or rubs. Normal PMI, no JVD. No pulse deficits. Respiratory: Lungs have equal breath sounds bilaterally, clear to auscultation and percussion. No rales, rhonchi or wheezes noted. No increased work of breathing, no retractions or nasal flaring. Abdomen/GI: Soft, non-tender, with normal bowel sounds. No distension or tympany. No guarding or rebound. No evidence of tenderness throughout. Back: No spinal tenderness. No costovertebral tenderness. Full range of motion. Skin: Warm, dry with normal turgor. Normal color with no rashes, no lesions, and no evidence of cellulitis. MS/ Extremity: Pulses equal, no cyanosis. Neurovascular intact. Full, normal range of motion. 10:39 Neuro: Orientation: is normal, Mentation: is normal, Cranial nerves: CN II- XII are normal as tested, horizontal nystagmus present to both eyes. Motor: is normal, moves all fours, strength is normal, strength is 5/5 in all extremities, Sensation: is normal, no obvious gross deficits. Vital Signs: 10:21 BP 142 / 82; Pulse 78; Resp 16; Temp 97.8(TE); Pulse Ox 100% ; Weight 99.79 kg; Height hb 5 ft. 6 in. (167.64 cm); Pain 10/10; 11:54 BP 126 / 84; Pulse 78; Resp 18; Pulse Ox 100% on R/A; ph 13:00 BP 120 / 84; Pulse 80; Resp 18; Pulse Ox 100% ; ph 14:00 BP 128 / 68; Pulse 86; Resp 16; Pulse Ox 99% on R/A; ph 15:27 BP 113 / 82; Pulse 82; Resp 18; Pulse Ox 100% on R/A; ph 16:29 BP 127 / 66; Pulse 95; Resp 16; Pulse Ox 100% on R/A; ph 17:30 BP 118 / 70; Pulse 85; Resp 18; Pulse Ox 99% on R/A; ph 19:00 BP 122 / 77; Pulse 95; Resp 16; Pulse Ox 97% on R/A; jb4 20:00 BP 130 / 92; Pulse 100; Resp 16; Pulse Ox 98% on R/A; jb4 10:21 Body Mass Index 35.51 (99.79 kg, 167.64 cm) hb Procedures: 15:16 Lumbar Puncture: Patient placed in left lateral decubitus position. Prepped with pm1 Betadine. Collected 12 ml's of clear fluid. Puncture site dressed with band aid, Patient tolerated well. opening pressure 34cmCSF. MDM: 10:38 Patient medically screened. pm1 12:38 Data reviewed: vital signs. Data interpreted: Pulse oximetry: on room air is 100 %. pm1 Interpretation: normal. 12:43 Counseling: I had a detailed discussion with the patient and/or guardian regarding: the pm1 historical points, exam findings, and any diagnostic results supporting the discharge/admit diagnosis, lab results, radiology results, the need for further work-up and treatment in the hospital. 12:43 Physician consultation: Manpreet Blair MD was called at 12:40, was contacted at 12:40, pm1 regarding consult, patient's condition, and will see patient tomorrow, would like further tests performed, CSF cytology, CSF Electrophoresis, CSF Myelin Basic Protein, Lyme Titer, COSME Level, Serum Electrophoresis, CSF IgG, Serum IgG. 12:43 Physician consultation: Manpreet Blair MD was called at 12:43, was contacted at 12:43. pm1 13:19 Physician consultation: Mary Hillman MD was called at 13:19, was contacted at 13:19, pm1 regarding admission, patient's condition, would like further tests performed, MRI. 16:55 Physician consultation: Mary iHllman MD after a discussion of the case, a pm1 recommendation for transfer for higher level of care is made, She discussed the case with Dr. Blair. Patient may need large volume LP or possible shunt which is not available here and no ICU bed available. She would like the patient transferred . 18:02 Physician consultation: Manpreet Blair MD was called at 17:56, was contacted at 17:56, pm1 regarding consult, patient's condition, after a discussion of the case, a recommendation for transfer for higher level of care is made. 08/31 10:48 Order name: Basic Metabolic Panel; Complete Time: 12:24 pm1 08/31 10:48 Order name: CBC with Diff; Complete Time: 12:24 pm1 08/31 10:48 Order name: Hepatic Function; Complete Time: 12:24 pm1 08/31 10:48 Order name: Lipase; Complete Time: 12:24 pm1 08/31 10:55 Order name: Urine Dipstick--Ancillary (enter results); Complete Time: 11:34 bd 08/31 10:55 Order name: Urine --Ancillary (enter results); Complete Time: 11:34 bd 08/31 10:48 Order name: CT Head Brain wo Cont; Complete Time: 12:05 pm1 08/31 11:34 Order name: Test, Serum; Complete Time: 12:38 ph 08/31 13:01 Order name: CSF Bacterial Antigens (tube 1); Complete Time: 15:54 pm1 08/31 13:01 Order name: Csf Culture pm1 08/31 13:01 Order name: Fluid Cell Count,Body; Complete Time: 17:50 pm1 08/31 13:01 Order name: Spinal Fluid Profile; Complete Time: 17:50 pm1 08/31 16:50 Order name: Protein Electo w/M Andrea Serum EDMS 08/31 16:50 Order name: Miscellaneous Test Lab EDMS 08/31 10:48 Order name: IV Saline Lock; Complete Time: 11:51 pm1 08/31 10:48 Order name: Labs collected and sent; Complete Time: 11:52 pm1 08/31 10:48 Order name: EKG; Complete Time: 10:48 pm1 08/31 10:48 Order name: EKG - Nurse/Tech; Complete Time: 11:52 pm1 08/31 12:59 Order name: LP Consents; Complete Time: 14:26 pm1 08/31 12:59 Order name: LP Setup; Complete Time: 14:25 pm1 08/31 13:19 Order name: MRI - Brain Wo Cont; Complete Time: 17:50 pm1 Administered Medications: 11:51 Drug: Zofran 4 mg Route: IVP; Site: left antecubital; ph 12:30 Follow up: Response: No adverse reaction ph 11:51 Drug: Meclizine 50 mg Route: PO; ph 12:30 Follow up: Response: No adverse reaction ph 11:51 Drug: NS 0.9% 1000 ml Route: IV; Rate: 1000 ml; Site: left antecubital; ph 13:30 Follow up: Response: No adverse reaction; IV Status: Completed infusion; IV Intake: ph 1000ml 12:51 CANCELLED (Physician Discretion): Decadron - Dexamethasone 10 mg IVP once pm1 16:13 Drug: Zofran 4 mg Route: IVP; Site: left antecubital; ph 19:09 Follow up: Response: No adverse reaction ph 16:15 Drug: morphine 4 mg Route: IVP; Site: left antecubital; ph 17:00 Follow up: Response: No adverse reaction; Pain is decreased; RASS: Alert and Calm (0) ph 16:18 Drug: Decadron - Dexamethasone 10 mg Route: IVP; Site: left antecubital; ph 17:00 Follow up: Response: No adverse reaction ph Disposition: 21:25 Co-signature as Attending Physician, Abdelrahman Meyers MD. rn Disposition: 08/31/19 17:04 Transfer ordered to [facility]. Diagnosis is Cerebral edema. - Reason for transfer: Higher level of care. - [facility] - Condition is Stable. - Problem is new. - Symptoms have improved. Signatures: Dispatcher [employer] EDMS Abdelrahman Meyers MD MD rn Hall, Patricia, RN RN ph Shubham Paredes, BUILDINGS AND GROUNDS DIRECTOR BUILDINGS AND GROUNDS DIRECTOR pm1 Dora Dupree, VASU RN David Petit RN RN jb4 Corrections: (The following items were deleted from the chart) 12:51 12:43 Decadron - Dexamethasone 10 mg IVP once ordered. pm1 pm1 17:03 13:21 Hospitalization Ordered by Mary Hillman MD for Inpatient Admission. Preliminary pm1 diagnosis is Cerebral edema. Bed requested for Telemetry/MedSurg (Inpatient). Status is Inpatient Admission. Condition is Stable. Problem is new. Symptoms have improved. UTI on Admission? No. pm1 20:11 17:04 08/31/2019 17:04 Transfer ordered to [facility]. Diagnosis is jb4 Cerebral edema. Reason for transfer: Higher level of care. [facility] Condition is Stable. Problem is new. Symptoms have improved. pm1
[2019-08-31 15:31] LABS: CSF Glucose 62 mg/dL (40-70)
[2019-08-31] MEDS ORDERED: dexAMETHasone 10 MG/ML VIAL ONE (16:00)
[2019-08-31] MEDS ORDERED: MORPHINE 4 MG/ML SYR ONE (16:01)
--- NOTE | 2019-08-31 17:40 | RAD REPORT ---
EXAM DESCRIPTION: MRI - Brain Wo Cont - 08/31/2019 5:30 pm CLINICAL HISTORY: DIZZINESS, headache, nausea and vomiting, cerebral edema appearance on CT imaging COMPARISON: None. TECHNIQUE: Sagittal T1-weighted images were obtained along with axial PD, heavily T2-weighted and T2 -FLAIR images. Axial DWI and ADC mapping sequences were also obtained along with coronal heavily T2-w eighted images. FINDINGS: No intracranial hemorrhage is present. No mass effect or midline shift. Turcios matter - whit e matter differentiation is preserved. Sulcal spaces are relatively tight but not outside of normal r fracisco for patient age. Ventricles are small but within normal range. The basilar cisterns are normal o n MRI imaging. The cerebral edema appearance on CT imaging is not seen on the MRI examination. No evidence of thrombosis in the major venous sinuses. No extra-axial fluid collections. No sella or supra sella abnormality. No globe or orbital content abnormality seen. Patient has prominent tonsillar and adenoid tissue not fully assessed on this study. Mastoid air cells and paranasal sinuses are clear. IMPRESSION: Noncontrast MRI brain imaging shows no significant or suspicious finding. The cerebral edema changes evident on CT imaging are not present on the MRI examination which is cons idered more sensitive.
[2019-08-31 17:41] LABS: Appearance CLEAR (CLEAR); Body Fluid Source CSF; Color of fluid Colorless (COLORLESS)
[2019-08-31 17:42] LABS: Body Fluid WBC 15 /mm^3
[2019-08-31 17:43] LABS: Appearance CLEAR (CLEAR); Body Fluid Source CSF; Color of fluid Colorless (COLORLESS); Fluid Total Volume 13 ml
[2019-08-31 17:44] LABS: Body Fluid WBC 10 /mm^3
[2019-08-31 20:16] VITALS: TEMP 97.8
[2019-08-31 20:26] VITALS: BP 130/92; O2SAT 98
== END 2019-08-31 20:11 | disposition short-term general hospital (02) ==
LOC: ER 10:08
PROC: 009U3ZX Drainage of Spinal Canal, Percutaneous Approach, Diagnostic (ICD-10-PCS; principal; 2019-08-31)
DX: G93.6 Cerebral edema (principal); J45.909 Unspecified asthma, uncomplicated
CPT/HCPCS: 96361; 93005; 87070; 85025; 80048; 36415; 89050 ×2; 84703; 81025; 84157; 82945; 80076; 86403 ×6; 81003; 83690; 84165; 70450; 70551; 62270 ×2; 96375; 96374; 99285; J1100; J7030; J2405 ×2; J8597

== ENCOUNTER 2020-07-04 15:12 | Emergency (ER) | payer BC ==
--- OUTSIDE RECORDS SUMMARY | 2020-07-04 15:15 | XMS REPORT | Continuity of Care Document ---
:1995 Author Organization Formerly [facility] t Address [address] [place] [address] Care Team Providers Name Role Phone Nahed Pearson MD Attending Clinician Keaton HUNTER, P. Attending Clinician Corey HUNTER M. 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 - [facility] - 00:[facility]: [facility] Center Allergies, Adverse Reactions, Alerts Allergy Allergy Status Severity Reaction(s) Onset Inactive Treating Comm ents Source Name Type Date Date Clinician No Known DA Active U 2020-0 [facility] [place] No Known DA Active U 2020-0 [facility] 4[facility] [place] Family History Family Member Diagnosis Comments Start Date Stop Date Source Natural mother Migraines [facility] Natural sister Migraines [facility] Social History Social Habit Start Date Stop Date Quantity Comments Source History SDOH Alcohol [facility] - Std Drinks [facility] History SDOH Alcohol [facility] - Binge [facility] Sex Assigned At [facility] kes - [facility] History SDOH Alcohol 2019-08-31 2019-08-[address] [facility] - Frequency 00:00:00 00:00:00 [facility] Center Smoking Status Start Date Stop Date Source Never smoker [facility] Ordered Filled Start Stop Current Ordering Indication Dosage Frequency Signature Comments Components Source Medication Medication Date Date Medication? Clinician (SIG) Name Name zonisamide 2018-10 Yes Take 1pill [facility] (ZONEGRAN) 11-03 daily for [facility] - 100 MG 00:00: 7days; Medical capsule 00 THEN 1pill Center twice daily for 7d; THEN 1.5pill(=1 50mg) twice daily for 7d; THEN 2 pills(=200 mg) twice daily. acetaZOLAMI 2018-10 2019- No 125mg Q.5D Take [address] [facility] (DIAMOX) 11-03 tablet [facility] - 125 MG 00:00: 23:59 (125 mg Medical tablet 00 :00 total) by Center mouth 2 (two) times daily for 30 days. topiramate 2018-10- No 50mg Q.5D Take [address] (TOPAMAX) 11-03 tablet (50 Juan es - 50 MG 00:00: 00:00 mg total) Medica l tablet 00 :00 by mouth 2 Center (two) times daily for 30 days. montelukast 2018-10 Yes 10mg QD Take [address] (SINGULAIR) 10-31 by mouth [facility] - 10 mg 22:23: nightly. Medical tablet 12 Center albuterol 2018-10 Yes 1{puff} Inhale [address] HFA -19 puff by [facility] - (VENTOLIN 22:23: mouth via Med ical HFA) 90 12 inhaler Center mcg/actuati every 6 on inhaler (six) hours as needed for Wheezing. Vital Signs Vital Name Observation Time Observation Value Comments Source Systolic blood 2019-09-03 15:21:00 109 mm[Hg] [facility] Diastolic blood 2019-09-03 15:21:00 59 mm[Hg] [facility] Heart rate 2019-09-03 15:21:00 74 /min [facility] Body temperature 2019-09-03 15:21:00 36.11 Yamileth [facility] Respiratory rate 2019-09-03 15:21:00 17 /min [facility] Oxygen saturation in 2019-09-03 15:21:00 100 /min [facility] Arterial blood by Medical Ce nter Pulse oximetry Body weight Measured 2019-09-01 05:00:00 101.878 kg [facility] Procedures Procedure Date / Time Performed Performing Clinician [facility] e REPORT OF PROCEDURE - 2019-09-07 09:55:06 Provider, Default [facility] ENDOSCOPY SCAN [facility] RHYTHM STRIP - SCAN 2019-09-07 09:54:55 Provider, Default [facility] RHYTHM STRIP - SCAN 2019-09-06 16:01:51 Provider, Default [facility] BASIC METABOLIC PANEL 2019-09-03 05:50:[address] [facility] () [facility] MAGNESIUM 2019-09-03 05:50:00 Adilia Beardensmine [facility] BASIC METABOLIC PANEL 2019-09-02 04:30:[address] [facility] () [facility] MAGNESIUM 2019-09-02 04:30:00 Letty Bearden [facility] HEPATIC FUNCTION PANEL 2019-09-02 04:30:00 Alexandria Barron [facility] MRA HEAD WITHOUT IV 2019-09-01 17:00:00 Renetta Pearson [facility] SCREEN, URINE 2019-09-01 13:00:00 Renetta Pearson [facility] HEMOGLOBIN A1C 2019-09-01 12:44:00 Renetta Pearson [facility] BASIC METABOLIC PANEL 2019-09-01 05:00:00 Adilia Beardencarlos SZYMNASKI [facility] (7) [facility] MAGNESIUM 2019-09-01 05:00:00 Suleiman Letty PREETI [facility] CBC W/PLT COUNT & AUTO 2019-09-01 01:30:[address] [facility] Encounters Start End Encounter Admission Attending Care Care Encounter Source Date/Time Date/Time Type Type Clinicians Facility Department ID 2019-03-16 Outpatient [facility] 7502 12:38:41 [facility] 2019-03-02 [facility] 11:20:11 [facility] 2019-04-02 2019-04-02 Outpatient [facility] [address] [facility] 05:56:00 05:56:00 Results Test Description Test Time Test Comments Results Result Comments Source COMPREHENSIVE METABOLIC PANEL 2020-05-05 15:54:00 Test Item Value Reference Range Interpretation Comme nts SODIUM (test code = NA) 138 mEq/L 135-145 N POTASSIUM (test code = K) 3.8 mEq/L 3.5-5.0 N CHLORIDE (test code = CL) 103 mEq/L 100-115 N CARBON DIOXIDE (test code = CO2) 23 mEq/L 22-31 N ANION GAP (test code = GAP) 16.00 10-20 N GLUCOSE (test code = GLU) 187 mg/dL 65-110 H BLOOD UREA NITROGEN (test code = BUN) 5 mg/dL 7-18 L GLOMERULAR FILTRATION RATE (test code = GFR) 114 ml/min >60 N CREATININE (test code = CREAT) 0.7 mg/dL 0.5-1.0 N TOTAL PROTEIN (test code = PROT) 7.0 gm/dL 6.3-8.2 N ALBUMIN (test code = ALB) 2.5 gm/dL 3.4-4.8 L CALCIUM (test code = CA) 8.3 mg/dL 8.4-10.2 L BILIRUBIN TOTAL (test code = BILT) 0.1 mg/dL 0.2-1.0 L SGOT/AST (test code = AST) 12 units/L 15-37 L SGPT/ALT (test code = ALT) 16 units/L 12-78 N ALKALINE PHOSPHATASE TOTAL (test code = ALKP) 97 units/L 46-116 N [id number] 15:54:00 Test Item Value Reference Range Interpretation Comments LIPASE (test code = LIP) 111 units/L 73-393 N CBC W/AUTO [id number] 15:25:00 Test Item Value Reference Range Interpretation Comments WHITE BLOOD CELL (test code = WBC) 10.2 K/mm3 6.6-12.1 N RED BLOOD CELL (test code = RBC) 3.77 M/mm3 3.45-5.01 N HEMOGLOBIN (test code = HGB) 9.8 g/dL 10.7-13.9 L HEMATOCRIT (test code = HCT) 31.7 % 32.1-42.1 L MEAN CELL VOLUME (test code = MCV) 84 fL 84.1-94.8 L MEAN CELL HGB (test code = MCH) 26.0 pg 27-35 L MEAN CELL HGB CONCETRATION (test 30.9 gm/dL 32.2-34.1 L code = MCHC) RED CELL DISTRIBUTION WIDTH (test 14.0 % 12.4-16.5 N code = RDW) PLATELET COUNT (test code = PLT) 296 K/mm3 133-385 N MEAN PLATELET VOLUME (test code = 10.1 fl 9.1-12.7 N MPV) NEUTROPHIL % (test code = NT%) 75.1 % 56.5-79.4 N LYMPHOCYTE % (test code = LY%) 19.6 % 14.3-34.3 N MONOCYTE % (test code = MO%) 4.0 % 5.1-10.4 L EOSINOPHIL % (test code = EO%) 0.5 % 0.1-3.0 N BASOPHIL % (test code = BA%) 0.2 % 0.1-1.0 N NEUTROPHIL # (test code = NT#) 7.7 K/mm3 LYMPHOCYTE # (test code = LY#) 2.0 K/mm3 MONOCYTE # (test code = MO#) 0.4 K/mm3 EOSINOPHIL # (test code = EO#) 0.05 K/mm3 BASOPHIL # (test code = BA#) 0.0 K/mm3 RBC MORPHOLOGY REQUIRED (test code NORMAL NORMAL = RBCM) PLATELET MORPHOLOGY REQUIRED (test NORMAL NORMAL code = PLTMR) UA RFLX MICR CULT IF [id number] 15:13:00 Test Item Value Reference Range Interpretation Comments UA COLOR (test code = COLU) YELLOW YELLOW UA APPEARANCE (test code = Slightly-Cloudy CLEAR APPU) UA GLUCOSE DIPSTICK (test 3+ NEG A code = DGLUU) UA BILIRUBIN DIPSTICK (test NEGATIVE NEG code = BILU) UA KETONE DIPSTICK (test code TRACE NEG A = KETU) UA SPECIFIC GRAVITY (test 1.028 1.001-1.035 N code = SGU) UA BLOOD DIPSTICK (test code NEG NEG = GOLDY) UA PH DIPSTICK (test code = 6.0 5-9 ASHLEY) UA PROTEIN DIPSTICK (test NEGATIVE NEG code = PROU) UA UROBILINIOGEN DIPSTICK NEGATIVE mg/dL NEG (test code = URO) UA NITRITE DIPSTICK (test NEG NEG code = MELLISSA) UA LEUKOCYTE ESTERASE NEG NEG DIPSTICK (test code = LEUU) UA WBC (test code = WBCU) 3-5 #/hpf NONE SEEN A UA RBC (test code = RBCU) 0-2 #/hpf NONE SEEN UA EPITHELIAL CELLS (test RARE #/HPF RARE-FEW code = EPIU) UA BACTERIA (test code = NEGATIVE /HPF RARE-FEW BACU) UA MUCUS (test code = MUCU) RARE NONE SEEN Indication for culture: Dysuria/[id number] 09:37:00 Test Item Value Reference Range Interpretation Comments GLUBED (test code = GLUBED) 83 mg/dL 65-110 N HCG [id number] 13:28:00 Test Item Value Reference Range Interpretation Comments HCG SERUM (test 00738 INTERPRETATI ON:VALUES BETWEEN code = HCG) 15-20 milliInte rnational units/mL NEED T O BERETESTED WITHIN 48 HOURS . All units for these ranges ar e in milliInternatio nalunits/mL0-1 WK AFTER CONCEP TION 0-50 1-2 W KS AFTER CONCEPTION 40-3002-3 WKS A FTER CONCEPTION 100-1 ,0003-4 WKS AFTER CONCEPTIO N 500-6,0001-2 MO NTHS AFTER CONCEPTION 5,000-200,0002- 3 MONTHS AFTER CONCEPTION 10,000-100,0002 ND TRIMESTER 3,000-50,0003RD TRIMESTER 1 ,000-50,000 SPECIMENS WITH AN HCG LEVEL FROM 0-6 milliInternatio nalunits/mL SHOULD BE CONSI DERED NEGATIVE CHEMISTRY 7 [id number] 13:22:00 Test Item Value Reference Range Interpretation Comments SODIUM (test code = NA) 136 mEq/L 135-145 N POTASSIUM (test code = K) 4.2 mEq/L 3.5-5.0 N CHLORIDE (test code = CL) 102 mEq/L 100-115 N CARBON DIOXIDE (test code = CO2) 26 mEq/L 22-31 N ANION GAP (test code = GAP) 12.70 10-20 N GLUCOSE (test code = GLU) 95 mg/dL 65-110 N BLOOD UREA NITROGEN (test code = 8 mg/dL 7-18 N BUN) GLOMERULAR FILTRATION RATE (test 99 ml/min >60 N code = GFR) CREATININE (test code = CREAT) 0.8 mg/dL 0.5-1.0 N CALCIUM (test code = CA) 8.9 mg/dL 8.4-10.2 N LIVER [id number] 13:22:00 Test Item Value Reference Range Interpretation Comments TOTAL PROTEIN (test code = PROT) 7.0 gm/dL 6.3-8.2 N ALBUMIN (test code = ALB) 3.1 gm/dL 3.4-4.8 L BILIRUBIN TOTAL (test code = 0.1 mg/dL 0.2-1.0 L BILT) BILIRUBIN DIRECT (test code = 0.1 mg/dL <0.2 N BILD) SGOT/AST (test code = AST) 12 units/L 15-37 L SGPT/ALT (test code = ALT) 16 units/L 12-78 N ALKALINE PHOSPHATASE TOTAL (test 108 units/L 46-116 N code = ALKP) [id number] 13:22:00 Test Item Value Reference Range Interpretation Comments LIPASE (test code = LIP) 109 units/L 73-393 N CBC W/AUTO [id number] 12:36:00 Test Item Value Reference Range Interpretation Comments WHITE BLOOD CELL (test code = WBC) 9.6 K/mm3 6.6-12.1 N RED BLOOD CELL (test code = RBC) 4.16 M/mm3 3.45-5.01 N HEMOGLOBIN (test code = HGB) 11.3 g/dL 10.7-13.9 N HEMATOCRIT (test code = HCT) 34.8 % 32.1-42.1 N MEAN CELL VOLUME (test code = MCV) 84 fL 84.1-94.8 L MEAN CELL HGB (test code = MCH) 27.2 pg 27-35 N MEAN CELL HGB CONCETRATION (test 32.5 gm/dL 32.2-34.1 N code = MCHC) RED CELL DISTRIBUTION WIDTH (test 14.1 % 12.4-16.5 N code = RDW) PLATELET COUNT (test code = PLT) 319 K/mm3 133-385 N MEAN PLATELET VOLUME (test code = 9.9 fl 9.1-12.7 N MPV) NEUTROPHIL % (test code = NT%) 68.7 % 56.5-79.4 N LYMPHOCYTE % (test code = LY%) 25.4 % 14.3-34.3 N MONOCYTE % (test code = MO%) 4.7 % 5.1-10.4 L EOSINOPHIL % (test code = EO%) 0.6 % 0.1-3.0 N BASOPHIL % (test code = BA%) 0.2 % 0.1-1.0 N NEUTROPHIL # (test code = NT#) 6.6 K/mm3 LYMPHOCYTE # (test code = LY#) 2.4 K/mm3 MONOCYTE # (test code = MO#) 0.5 K/mm3 EOSINOPHIL # (test code = EO#) 0.06 K/mm3 BASOPHIL # (test code = BA#) 0.0 K/mm3 RBC MORPHOLOGY REQUIRED (test code NORMAL NORMAL = RBCM) PLATELET MORPHOLOGY REQUIRED (test NORMAL NORMAL code = PLTMR) - DUP AB/PEL/SC/[id number] 12:12:00 Patient Name: GLYNN LOMELI Unit No: [id number] EXAMS: CPT CODE: [id number] DUP AB/PEL/SC/LTD [address]70[address] [facility] [address] [place], [place] [address] OBSTETRICAL MULTI-FETUS ULTRASOUND REPORT FETUS A Pat. Name: GLYNN LOMELI Pat. No: [id number] Study Date: 02/03/2020 11:22am , Age: 05 1995, 24 Pregnancies: 3, Para 2 LMP: 12/05/2019 GA by LMP: 08w4d GA by US: 08w4d GA Selected: 08w4d (LMP) ROOSEVELT: 09/10/2020 Referring MD: Vinayak Green Game Author: Lucy Harris RDMS CPT4: [id number] Hist/Ind: 1ST SCAN RLQ PAIN --- MEASUREMENTS AGE GROWTH EVALUATION Measurement GA Range Srce %for GA Ratios ---- ------- CRL 2.0 cm 08w4d (01b2o-30m7k) Hadl CRL 49% GA for sonogram 08w4d (11l1i-68z7t) based on (CRL) Avg Heart Rate: 174 bpm MATERNAL ANATOMY Ovaries LxHxW (cm) Right 2.2 x 1.2 x 1.9 Vol: 2.6cc Left 3.2 x 1.3 x 2.0 Vol: 4.4cc Ovarian Cysts LxHxW (cm) R1: 1.5 x 0.7 x 0.9 Desc: Simple L1: 1.8 x 1.0 x 1.1Desc: Hypoechoic CLINICAL SUMMARY Type of Gestation: Twin A motion and organs seen: heart motion seen Uterus and adnexa: No significant abnormality is seen. DOPPLER FLOW DEMONSTRATED IN BOTH OVARIES. Thank you for allowing us to participate in the care of this patient. Washington Villeda M.D. Electronic Signature 02/03/2020 12:12pm FETUS B Pat. Name: GLYNN LOMELI [facility] NAME: GLYNN LOMELI Radiology Department PHYS: Vinayak Molina MD [address] : 1995 AGE: 24 SEX: F [place], [place] [address] LOC: GigiJEAN PHONE #: [phone] EXAM DATE: 02/03/2020 STATUS: DEP ER FAX #: [phone] RAD NO: Page 1 Signed Report (CONTINUED) Patient Name: GLYNN LOMELI Unit No: [id number] EXAMS: CPT CODE: [id number] DUP AB/PEL/SC/LTD 77047 <Continued> Pat. No: [id number] Study Date: 02/03/2020 11:22am , Age: 05 1995, 24 Pregnancies: 3, Pa ra 2 LMP: 12/05/2019 GA by LMP: 08w4d GA by US: 08w4d GA Selected: 08w4d (LMP)ROOSEVELT: 09/10/2020 Referring MD: VINAYAK GREEN Game Author: Lucy Harris RDMS CPT4: [id number] Hist/Ind: 1ST SCAN RLQ PAIN MEASUREMENTS AGE GROWTH EVALUATION Measurement GA Range Srce %for GA Ratios ----- ---- ------- CRL 2.0 cm 08w4d (48t0t-71m7e) Hadl CRL 49% GA for sonogram 08w4d (98u0q-56t1g) based on (CRL) Avg Heart Rate: 172 bpm MATERNAL ANATOMY Ovaries LxHxW (cm) Right 2.2 x 1.2 x 1.9 Vol: 2.6cc Left 3.2 x 1.3 x 2.0 Vol: 4.4cc Ovarian Cysts LxHxW (cm) R1: 1.5 x 0.7 x 0.9 Desc: Simple L1: 1.8 x 1.0 x 1.1 Desc: Hypoechoic CLINICAL SUMMARY Type of Gestation: Twin B motion andorgans seen: heart motion seen Washington Villeda M.D. Electronic Signature 02/03/2020 12:12pm at 1212 Reported and signed by: Washington Villeda MD CC: Amish Jeffery MD; Vinayak Green MD Technologist: Lucy Harris RDMS Probe: Trnscrbd D/ (1212) [email or web address] Orig Print D/T: S: 02/04/2020 (1532) [facility] NAME: GLYNN LOMELI Radiology Department PHYS: Vinayak Molina MD [address] : 1995 AGE: 24 SEX: F [place] [address] LOC: GigiERS PHONE #: [phone] EXAM DATE: 02/03/2020 STATUS: DEP ER FAX #: [phone] RAD NO: Page 2 Signed Report Patient Name: GLYNN LOMELI Unit No: [id number] EXAMS: CPT CODE: [id number] DUP AB/PEL/SC/LTD 56794 <Continued> [facility] NAME: GLYNN LOMELI Radiology Department PHYS: Vinayak Molina MD [address] : 1995 AGE: 24 SEX: [place] [address] LOC: GigiERS PHONE #: [phone] EXAM DATE: 02/03/2020 STATUS: DEP ER FAX #: [phone] RAD NO: Page 3 Signed Report- US PRG 1ST TRI EA [id number] 12:12:00 Patient Name: GLYNN LOMELI Unit No: [id number] EXAMS: CPT CODE: [id number] US PRG 1ST [place] [id number] [facility] [address] [place], [place] [address] OBSTETRICAL MULTI-FETUS ULTRASOUND REPORT FETUS A Pat. Name: GLYNN LOMELI Pat. No: [id number] Study Date: 02/03/2020 11:22am , Age: 05 1995, 24 Pregnancies: 3, Para 2 LMP: 12/05/2019 GA by LMP: 08w4d GA by US: 08w4d GA Selected: 08w4d (LMP) ROOSEVELT: 09/10/2020 Referring MD: Vinayak Green Game Author: Lucy Harris RDMS CPT4: [id number] Hist/Ind: 1ST SCAN RLQ PAIN -- MEASUREMENTS AGE GROWTH EVALUATION Measurement GA Range Srce %for GA Ratios ----- ---- ------- CRL 2.0 cm 08w4d (74b6c-63j3p) Hadl CRL 49%GA for sonogram 08w4d (73w3r-79e2v) based on (CRL) Avg Heart Rate: 174 bpm MATERNAL ANATOMY Ovaries LxHxW (cm) Right 2.2 x 1.2 x1.9 Vol: 2.6cc Left 3.2 x 1.3 x 2.0 Vol: 4.4cc Ovarian Cysts LxHxW (cm) R1: 1.5 x 0.7 x 0.9 Desc: Simple L1: 1.8 x 1.0 x 1.1 Desc: Hypoechoic CLINICAL SUMMARY Type of Gestation: Twin A motion and organs seen: heart motion seen Uterus and adnexa: No significant abnormality is seen. DOPPLER FLOW DEMONSTRATED IN BOTH OVARIES. Thank you forallowing us to participate in the care of this patient. Washington Villeda M.D. Electronic Signature 02/03/2020 12:12pm FETUS B Pat. Name: GLYNN LOMELI [facility] NAME: JEROD LOMELICRISTY Radiology Department PHYS: Vinayak Molina [address] : 1995 AGE: 24 SEX: F [place], [place] [address] LOC: MARLON PHONE #: [phone] EXAM DATE: 02/03/2020 STATUS: DEP ER FAX #: [phone] RAD NO: Page 1 Signed Report (CONTINUED) Patient Name: GLYNN LOMELI Unit No: [id number] EXAMS: CPT CODE: [id number] PRG 1ST [place] ADD [id number] <Continued> Pat. No: [id number] Study Date: 02/03/2020 11:22am , Age: 05 1995, 24 Pregnancies: 3, Para 2 LMP: 12/05/2019 GA by LMP: 08w4d GA by US: 08w4d GA Selected: 08w4d (LMP) ROOSEVELT: 09/10/2020 Referring MD: VINAYAK GREEN Game Author: Lucy Harris RDMS CPT4: [id number] Hist/Ind: 1ST SCAN RLQ PAIN MEASUREMENTS AGE GROWTH EVALUATION Measurement GA Range Srce %for GA Ratios ----- ---- ------- CRL 2.0 cm 08w4d (39h0u-01j3g) Hadl CRL 49% GA for sonogram 08w4d (13l3a-40a0n) based on (CRL) Avg Heart Rate: 172 bpm MATERNAL ANATOMY Ovaries LxHxW (cm) Right 2.2 x 1.2 x 1.9 Vol: 2.6cc Left 3.2 x 1.3 x 2.0 Vol: 4.4cc Ovarian Cysts LxHxW (cm) R1: 1.5 x 0.7 x 0.9 Desc: Simple L1: 1.8 x 1.0 x 1.1 Desc: Hypoechoic CLINICAL SUMMARY Type of Gestation: Twin B motion and organs seen: heart motion seen Washington Villeda M.D. Electronic Signature 02/03/2020 12:12pm at 1212 Reported and signed by: Washington Villeda MD CC: Amish Jeffery MD; Vinayak Green MD Technologist: Lucy Harris RDMS Probe: Trnscrbd D/ (1212) [email or web address] Orig Print D/T: S: 02/04/2020 (1525) [facility] NAME: GLYNN LOMELI Radiology Department PHYS:Vinayak Molina MD [address] : 1995 AGE: 24 SEX: F [place], [place] [address] LOC: MARLON PHONE #: [phone] EXAM DATE: 02/03/2020 STATUS: DEP ER FAX #: [phone] RAD NO: Page 2 Signed Report Patient Name: GLYNN LOMELI Unit No: [id number] EXAMS: CPT CODE: [id number] US PRG 1ST [place] ADD [id number] <Continued> [facility] NAME: GLYNN LOMELI Radiology Department PHYS: Mica Molina MD [address] : 1995 AGE: 24 SEX: F [place] [address] LOC: MARLON PHONE #: [phone] EXAM DATE: 02/03/2020 STATUS: [facility] ER FAX #: [phone] RAD NO: Page 3 Signed Report- US PREG UT [id number] 12:12:00 Patient Name: GLYNN LOMELI Unit No: [id number] EXAMS: CPT CODE: [id number] US PREG [place] TRANSVAGINAL [address] [place] [address] [place] [address] OBSTETRICAL MULTI-FETUS ULTRASOUND REPORT FETUS A Pat. Name: GLYNN LOMELI Pat. No: [id number] Study Date: 02/03/2020 11:22am , Age: 05 1995, 24 Pregnancies: 3, Para 2 LMP: 12/05/2019 GA by LMP: 08w4d GA by US: 08w4d GA Selected: 08w4d (LMP) ROOSEVELT: 09/10/2020 Referring MD: Vinayak Green Game Author: Lucy Harris RDMS CPT4: [id number] Hist/Ind: 1ST SCAN RLQ PAIN -- MEASUREMENTS AGE GROWTH EVALUATION Measurement GA Range Srce %for GA Ratios ----- ---- ------- CRL 2.0 cm 08w4d (99b8a-35x3z) Hadl CRL 49%GA for sonogram 08w4d (37b4f-41c9m) based on (CRL) Avg Heart Rate: 174 bpm MATERNAL ANATOMY Ovaries LxHxW (cm) Right 2.2 x 1.2 x1.9 Vol: 2.6cc Left 3.2 x 1.3 x 2.0 Vol: 4.4cc Ovarian Cysts LxHxW (cm) R1: 1.5 x 0.7 x 0.9 Desc: Simple L1: 1.8 x 1.0 x 1.1 Desc: Hypoechoic CLINICAL SUMMARY Type of Gestation: Twin A motion and organs seen: heart motion seen Uterus and adnexa: No significant abnormality is seen. DOPPLER FLOW DEMONSTRATED IN BOTH OVARIES. Thank you forallowing us to participate in the care of this patient. Washington Villeda M.D. Electronic Signature 02/03/2020 12:12pm FETUS B Pat. Name: GLYNN LOMELI [facility] NAME: GLYNN LOMELI Radiology Department PHYS: Vinayak Molina MD[address] : 1995 AGE: 24 SEX: F [place], [place] [address] LOC: MARLON PHONE #: [phone] EXAM DATE: 02/03/2020 STATUS: [facility] ER FAX #: [phone] RAD NO: Page 1 Signed Report (CONTINUED) Patient Name: GLYNN LOMELI Unit No: [id number] EXAMS: CPT CODE: [id number] PREG [place] TRANSVAGINAL [address] <Continued> Pat. No: [id number] Study Date: 02/03/2020 11:22am , Age: 05 1995, 24 Pregnancies: 3, Para 2 LMP: 12/05/2019 GA by LMP: 08w4d GA by US: 08w4d GA Selected: 08w4d (LMP) ROOSEVELT: 09/10/2020 Referring MD: VINAYAK GREEN Game Author: Lucy Harris RDMS CPT4: [id number] Hist/Ind: 1ST SCAN RLQ PAIN MEASUREMENTS AGE GROWTH EVALUATION Measurement GA Range Srce %for GA Ratios ----- ---- ------- CRL 2.0 cm 08w4d (26k3l-10w0u) Hadl CRL 49% GA for sonogram 08w4d (73l5j-71b8c) based on (CRL) Avg Heart Rate: 172 bpm MATERNAL ANATOMY Ovaries LxHxW (cm) Right 2.2 x 1.2 x 1.9 Vol: 2.6cc Left 3.2 x 1.3 x 2.0 Vol: 4.4cc Ovarian Cysts LxHxW (cm) R1: 1.5 x 0.7 x 0.9 Desc: Simple L1: 1.8 x 1.0 x 1.1 Desc: Hypoechoic CLINICAL SUMMARY Type of Gestation: Twin B motion and organs seen: heart motion seen [place] Villeda M.D. Electronic Signature 02/03/2020 12:12pm at 1212 Reported and signed by: Washington Villeda MD CC: Amish Jeffery MD; Vinayak Green MD Technologist: Lucy Harris RDMS Probe: [id number] Trnscrbd D/ (1212) [email or web address] Orig Print D/T: S: 02/04/2020 (1530) [facility] NAME: GLYNN LOMELI Radiology Department PHYS:Vinayak Molina MD [address] : 1995 AGE: 24 SEX: F [place], [place] [address] LOC: [place] PHONE #: [phone] EXAM DATE: 02/03/2020 STATUS: ANTHONY ER FAX #: [phone] RAD NO: Page 2 Signed Report Patient Name: GLYNN LOMELI Unit No: [id number] EXAMS: CPT CODE: [id number] US PREG UT TRANSVAGINAL [id number] <Continued> [facility] NAME: ARMANIGLYNN Radiology Department PHYS: Mica Molina MD [address] : 1995 AGE: 24 SEX: [place], [place] [address] LOC: [place] PHONE #: [phone] EXAM DATE: 02/03/2020 STATUS: ANTHONY ER FAX #: [phone] RAD NO: Page 3 Signed Report- US PREG EVAL 1ST [id number] 12:12:00 Patient Name: GLYNN LOMELI Unit No: [id number] EXAMS: CPT CODE: [id number] US PREG EVAL 1ST TRIMTR [id number] [facility] [address] [place], [place] [address] OBSTETRICAL MULTI-FETUS ULTRASOUND REPORT FETUS A Pat. Name: GLYNN LOMELI Pat. No: [id number] Study Date: 02/03/2020 11:22am , Age: 05 1995, 24 Pregnancies: 3, Para 2 LMP: 12/05/2019 GA by LMP: 08w4d GA by US: 08w4d GA Selected: 08w4d (LMP) [place]: 09/10/2020 Referring MD: VINAYAK GREEN Game Author: Lucy Harris RDMS CPT4: [id number] Hist/Ind: 1ST SCAN RLQ PAIN -- MEASUREMENTS AGE GROWTH EVALUATION Measurement GA Range Srce %for GA Ratios ----- ---- ------- CRL 2.0 cm 08w4d (75m9l-04d2c) Hadl CRL 49%GA for sonogram 08w4d (18x7a-86p6w) based on (CRL) Avg Heart Rate: 174 bpm MATERNAL ANATOMY Ovaries LxHxW (cm) Right 2.2 x 1.2 x1.9 Vol: 2.6cc Left 3.2 x 1.3 x 2.0 Vol: 4.4cc Ovarian Cysts LxHxW (cm) R1: 1.5 x 0.7 x 0.9 Desc: Simple L1: 1.8 x 1.0 x 1.1 Desc: Hypoechoic CLINICAL SUMMARY Type of Gestation: Twin A motion and organs seen: heart motion seen Uterus and adnexa: No significant abnormality is seen. DOPPLER FLOW DEMONSTRATED IN BOTH OVARIES. Thank you forallowing us to participate in the care of this patient. Washington Villeda M.D. Electronic Signature 02/03/2020 12:12pm FETUS B Pat. Name: GLYNN LOMELI [facility] NAME: GLYNN LOMELI Radiology Department PHYS: Vinayak Molina MD[address] : 1995 AGE: 24 SEX: [place], [place] [address] LOC: [place] PHONE #: [phone] EXAM DATE: 02/03/2020 STATUS: REG ER FAX #: [phone] RAD NO: Page 1 Signed Report (CONTINUED) Patient Name: GLYNN LOMELI Unit No: [id number] EXAMS: CPT CODE: [id number] PREG EVAL 1ST TRIMTR 81468 <Continued> Pat. No: [id number] Study Date: 02/03/2020 11:22am , Age: 05 1995, 24 Pregnancies: 3, Para 2 LMP: 12/05/2019 GA by LMP: 08w4d GA by US: 08w4d GA Selected: 08w4d (LMP) [place]: 09/10/2020 Referring MD: VINAYAK GREEN Game Author: Lucy Harris RDMS CPT4: [id number] Hist/Ind: 1ST SCAN RLQ PAIN MEASUREMENTS AGE GROWTH EVALUATION Measurement GA Range Srce %for GA Ratios ----- ---- ------- CRL 2.0 cm 08w4d ([id number]-72a3r) Hadl CRL 49% GA for sonogram 08w4d ([id number]-60i5w) based on (CRL) Avg Heart Rate: 172 bpm MATERNAL ANATOMY Ovaries LxHxW (cm) Right 2.2 x 1.2 x 1.9 Vol: 2.6cc Left 3.2 x 1.3 x 2.0 Vol: 4.4cc Ovarian Cysts LxHxW (cm) R1: 1.5 x 0.7 x 0.9 Desc: Simple L1: 1.8 x 1.0 x 1.1 Desc: Hypoechoic CLINICAL SUMMARY Type of Gestation: Twin B motion and organs seen: heart motion seen Washington Villeda M.D. Electronic Signature 02/03/2020 12:12pm at 1212 Reported and signed by: Washington Villeda MD CC: Amish Jeffery MD; Vinayak Green MD Technologist: Lucy Harris RDMS Probe: Trnscrbd D/ (1212) [id number] Orig Print D/T: S: 02/03/2020 (1212) [facility] NAME: GLYNN LOMELI Radiology Department PHYS:Vinayak Molina MD [address] : 1995 AGE: 24 SEX: [place] [address] LOC: GigiERS PHONE #: [phone] EXAM DATE: 02/03/2020 STATUS: REG ER FAX #: [phone] RAD NO: Page 2 Signed Report Patient Name: GLYNN LOMELI Unit No: [id number] EXAMS: CPT CODE: [id number] PREG EVAL 1ST TRIMTR 55219 <Continued> [facility] NAME: JEROD LOMELICRISTY Radiology Department PHYS: Mica Molina MD [address] : 1995 AGE: 24 SEX: [place] [address] LOC: GigiERS PHONE #: [phone] EXAM DATE: 02/03/2020 STATUS: REG ER FAX #: [phone] RAD NO: Page 3 Signed ReportUA RFLX MICR CULT IF [id number] 11:16:00 Test Item Value Reference Range Interpretation Comments UA COLOR (test code = COLU) YELLOW YELLOW UA APPEARANCE (test code = CLEAR CLEAR APPU) UA GLUCOSE DIPSTICK (test code 2+ NEG A = DGLUU) UA BILIRUBIN DIPSTICK (test NEGATIVE NEG code = BILU) UA KETONE DIPSTICK (test code NEGATIVE NEG = KETU) UA SPECIFIC GRAVITY (test code 1.013 1.001-1.035 N = SGU) UA BLOOD DIPSTICK (test code = NEG NEG GOLDY) UA PH DIPSTICK (test code = 5.0 5-9 ASHLEY) UA PROTEIN DIPSTICK (test code NEGATIVE NEG = PROU) UA UROBILINIOGEN DIPSTICK NEGATIVE mg/dL NEG (test code = URO) UA NITRITE DIPSTICK (test code NEG NEG = MELLISSA) UA LEUKOCYTE ESTERASE DIPSTICK NEG NEG (test code = LEUU) UA WBC (test code = WBCU) 0-2 #/hpf NONE SEEN UA RBC (test code = RBCU) 0-2 #/hpf NONE SEEN UA EPITHELIAL CELLS (test code RARE #/HPF RARE-FEW = EPIU) UA BACTERIA (test code = BACU) RARE /HPF RARE-FEW UA MUCUS (test code = MUCU) RARE NONE SEEN Indication for culture: Suprapubic PainBasic metabolic [id number] 09:05:00 Test Item Value Reference Range Interpretation Comments Sodium (test code = 135 meq/L 136-145 L 2951-2) Potassium (test code = 4.1 meq/L 3.5-5.1 2823-3) Chloride (test code = 112 meq/L 98-107 H 2075-0) CO2 (test code = 17 meq/L 22-29 L 2028-9) BUN (test code = 14 mg/dL 7-21 3094-0) Creatinine (test code = 0.89 mg/dL 0.57-1.25 2160-0) Glucose (test code = 129 mg/dL 70-105 H 2345-7) Calcium (test code = 8.1 mg/dL 8.4-10.2 L 23264-0) EGFR (test code = 94 mL/min/1.73 [place] [address]-7) NOT ACCURATE CREATININE CLEARANCE IN PREDICTING GLOMERULAR FILTRATION RATE . ESTIMATED GFR I S NOT APPLICABLE FOR DIALYSIS PATIEN TS. Lab Interpretation Abnormal (test code = 12869-8) [facility]2019-11-22 09:05:00 Test Item Value Reference Range Interpretation Comments Magnesium (test code = 68304-6) 2.0 mg/dL 1.6-2.6 Lab Interpretation (test code = Normal 38980-9) [facility]2019-11-22 09:05:00 Test Item Value Reference Range Interpretation Comments MAGNESIUM (BEAKER) (test code = 2.0 mg/dL 1.6-2.6 627) BASIC METABOLIC [id number] 09:05:00 Test Item Value Reference Range Interpretation Comments SODIUM (BEAKER) 135 meq/L 136-145 L (test code = 381) POTASSIUM (BEAKER) 4.1 meq/L 3.5-5.1 (test code = 379) CHLORIDE (BEAKER) 112 meq/L 98-107 H (test code = 382) CO2 (BEAKER) (test 17 meq/L 22-29 L code = 355) BLOOD UREA NITROGEN 14 mg/dL 7-21 (BEAKER) (test code = 354) CREATININE (BEAKER) 0.89 mg/dL 0.57-1.25 (test code = 358) GLUCOSE RANDOM 129 mg/dL 70-105 H (BEAKER) (test code = 652) CALCIUM (BEAKER) 8.1 mg/dL 8.4-10.2 L (test code = 697) EGFR (BEAKER) (test 94 mL/min/1.73 ESTIMA MARÍA GFR IS code = 1092) sq m NOT ACCURATE CREATININE CLEARANCE IN PREDICTING GLOMERULAR FILTRATION RATE . ESTIMATED GFR I S NOT APPLICABLE FOR DIALYSIS PATIEN TS. Hepatic function [id number] 11:23:00 Test Item Value Reference Range Interpretation Comments Protein, Total (test code = 2885-2) 7.1 6.0- 8.3 gm/dL Albumin (test code = 10107-1) 3.6 g/dL 3.5-5 Total Bilirubin (test code = 0.1 mg/dL 0.2-1.2 L 1974-2) Bilirubin, Direct (test code = 0.1 mg/dL 0.1-0.5 1968-7) Alkaline Phosphatase (test code = 112 U/L 40-150 6768-6) AST (test code = 1920-8) 13 U/L 5-34 ALT (test code = 1742-6) 16 U/L 6-55 Lab Interpretation (test code = Abnormal 74265-4) [facility] [id number] 11:23:00 Test Item Value Reference Range Interpretation Comments TOTAL PROTEIN (BEAKER) (test code = 7.1 gm/dL 6.0-8.3 770) ALBUMIN (BEAKER) (test code = 1145) 3.6 g/dL 3.5-5.0 BILIRUBIN TOTAL (BEAKER) (test code 0.1 mg/dL 0.2-1.2 L = 377) BILIRUBIN DIRECT (BEAKER) (test 0.1 mg/dL 0.1-0.5 code = 706) ALKALINE PHOSPHATASE (BEAKER) (test 112 U/L 40-150 code = 346) AST (SGOT) (BEAKER) (test code = 13 U/L 5-34 353) ALT (SGPT) (BEAKER) (test code = 16 U/L 6-55 347) [id number] 05:18:00 Test Item Value Reference Range Interpretation Comments MAGNESIUM (BEAKER) (test code = 2.4 mg/dL 1.6-2.6 627) BASIC METABOLIC [id number] 05:18:00 Test Item Value Reference Range Interpretation Comments SODIUM (BEAKER) 135 meq/L 136-145 L (test code = 381) POTASSIUM (BEAKER) 3.8 meq/L 3.5-5.1 (test code = 379) CHLORIDE (BEAKER) 110 meq/L 98-107 H (test code = 382) CO2 (BEAKER) (test 18 meq/L 22-29 L code = 355) BLOOD UREA NITROGEN 15 mg/dL 7-21 (BEAKER) (test code = 354) CREATININE (BEAKER) 1.08 mg/dL 0.57-1.25 (test code = 358) GLUCOSE RANDOM 131 mg/dL 70-105 H (BEAKER) (test code = 652) CALCIUM (BEAKER) 8.4 mg/dL 8.4-10.2 (test code = 697) EGFR (SHELLIE) (test 76 mL/min/1.73 ESTIMA MARÍA GFR IS code = 1092) sq m NOT ACCURATE CREATININE CLEARANCE IN PREDICTING GLOMERULAR FILTRATION RATE . ESTIMATED GFR I S NOT APPLICABLE FOR DIALYSIS PATIEN TS. MR, MRA, BRAIN, WITHOUT [id number] 17:26:00Anesthesia:->NoneDeos the patient have an implanted electronic device?->NoFINAL REPORT MRV Head CLINICAL HISTORY:Suspect VST (venous sinus thrombosis) T ECHNIQUE: MRA of the head using 3-D qowj-eq-pctdjv technique. MRV of the head utilizing 2-D tjxa-lc-ynvwud technique. COMPARISON: None FINDINGS:There is no evidence of intracranial aneurysm, focal stenosis, or major branch vessel occlusion. The major intradural venous sinuses in the brain are patent. IMPRESSION: Unremarkable MRA and MRV of the head. Signed: Byron Belcher Verified Date/Time: 09/01/2019 17:26:44 MRA head without IV contrast 2019-09-01 17:26:00Interface, External Ris In - 09/01/2019 5:28 PM CSTFINAL REPORT MRV Head CLINICAL HISTORY:Suspect VST (venous sinus thrombosis) TECHNIQUE: MRA of the head using 3-D owyl-mw-phnmfm technique. MRV of the head utilizing 2-D dqni-yq-kqpthz technique. COMPARISON: None FINDINGS:Thereis no evidence of intracranial aneurysm, focal stenosis, or major branch vessel occlusion. The major intradural venous sinuses in the brain are patent. IMPRESSION: Unremarkable MRA and MRV of the head. Signed: Byron Belcher Verified Date/Time: 09/01/2019 17:26:44 [facility] Hemoglobin [id number] 14:06:00 Test Item Value Reference Range Interpretation Comments Hemoglobin A1C (test code = 4548-4) 6.8 % 4.3-6.1 H Lab Interpretation (test code = Abnormal 91529-0) [facility] [id number] 14:06:00 Test Item Value Reference Range Interpretation Comments HEMOGLOBIN A1C (BEAKER) (test code = 6.8 % 4.3-6.1 H 368) Screen, [id number] 13:33:00 Test Item Value Reference Range Interpretation Comments Preg Test, Ur (test code = 2112-1) Negative [facility] S[facility], [id number] 13:33:00 Test Item Value Reference Range Interpretation Comments TEST URINE (BEAKER) (test Negative code = 583) [id number] 06:00:00 Test Item Value Reference Range Interpretation Comments MAGNESIUM (BEAKER) (test code = 2.1 mg/dL 1.6-2.6 627) BASIC METABOLIC [id number] 06:00:00 Test Item Value Reference Range Interpretation Comments SODIUM (BEAKER) 136 meq/L 136-145 (test code = 381) POTASSIUM (BEAKER) 4.2 meq/L 3.5-5.1 (test code = 379) CHLORIDE (BEAKER) 107 meq/L 98-107 (test code = 382) CO2 (BEAKER) (test 24 meq/L 22-29 code = 355) BLOOD UREA NITROGEN 10 mg/dL 7-21 (BEAKER) (test code = 354) CREATININE (BEAKER) 0.99 mg/dL 0.57-1.25 (test code = 358) GLUCOSE RANDOM 231 mg/dL 70-105 H (BEAKER) (test code = 652) CALCIUM (BEAKER) 9.4 mg/dL 8.4-10.2 (test code = 697) EGFR (BEAKER) (test 84 mL/min/1.73 ESTIMA MARÍA GFR IS code = 1092) sq m NOT ACCURATE CREATININE CLEARANCE IN PREDICTING GLOMERULAR FILTRATION RATE . ESTIMATED GFR I S NOT APPLICABLE FOR DIALYSIS PATIEN TS. CBC with platelet count + automated [id number] 02:02:00 Test Item Value Reference Range Interpretation Comments WBC (test code = 6690-2) 5.2 3.5- 10.5 K/L RBC (test code = 789-8) 4.53 3.93- 5.22 M/L MCHC (test code = 786-4) 31.3 32.2- 35.5 GM/DL L Hematocrit (test code = 4544-3) 37.1 % 34.1-44.9 MCV (test code = 787-2) 81.9 fL 79.4-94.8 MCH (test code = 785-6) 25.6 pg 25.6-32.2 RDW (test code = 788-0) 14.9 % 11.7-14.4 H Platelets (test code = 777-3) 259 150- 450 K/CU MM MPV (test code = 39905-3) 10.1 fL 9.4-12.3 nRBC (test code = 413) 0 0- 0 /100 WBC % Neutros (test code = 429) 80 % % Lymphs (test code = 430) 17 % % Monos (test code = 431) 2 % % Eos (test code = 432) 0 % % Baso (test code = 437) 0 % # Neutros (test code = 670) 4.12 1.56- 6.13 K/L # Lymphs (test code = 414) 0.90 1.18- 3.74 K/L L # Monos (test code = 415) 0.11 0.24- 0.36 K/L L # Eos (test code = 416) 0.00 0.04- 0.36 K/L L # Baso (test code = 417) 0.01 0.01- 0.08 K/L Immature Granulocytes-Relative 0 % 0-1 (test code = 2801) Lab Interpretation (test code = Abnormal 61060-5) [facility] W/PLT COUNT & AUTO [id number] 02:02:00 Test Item Value Reference Range Interpretation Comments WHITE BLOOD CELL COUNT (BEAKER) 5.2 K/ L 3.5-10.5 (test code = 775) RED BLOOD CELL COUNT (BEAKER) 4.53 M/ L 3.93-5.22 (test code = 761) HEMOGLOBIN (BEAKER) (test code = 11.6 GM/DL 11.2-15.7 410) HEMATOCRIT (BEAKER) (test code = 37.1 % 34.1-44.9 411) MEAN CORPUSCULAR VOLUME (BEAKER) 81.9 fL 79.4-94.8 (test code = 753) MEAN CORPUSCULAR HEMOGLOBIN 25.6 pg 25.6-32.2 (BEAKER) (test code = 751) MEAN CORPUSCULAR HEMOGLOBIN CONC 31.3 GM/DL 32.2-35.5 L (BEAKER) (test code = 752) RED CELL DISTRIBUTION WIDTH 14.9 % 11.7-14.4 H (BEAKER) (test code = 412) PLATELET COUNT (BEAKER) (test 259 K/CU MM 150-450 code = 756) MEAN PLATELET VOLUME (BEAKER) 10.1 fL 9.4-12.3 (test code = 754) NUCLEATED RED BLOOD CELLS 0 /100 WBC 0-0 (BEAKER) (test code = 413) NEUTROPHILS RELATIVE PERCENT 80 % (BEAKER) (test code = 429) LYMPHOCYTES RELATIVE PERCENT 17 % (BEAKER) (test code = 430) MONOCYTES RELATIVE PERCENT 2 % (BEAKER) (test code = 431) EOSINOPHILS RELATIVE PERCENT 0 % (BEAKER) (test code = 432) BASOPHILS RELATIVE PERCENT 0 % (BEAKER) (test code = 437) NEUTROPHILS ABSOLUTE COUNT 4.12 K/ L 1.56-6.13 (BEAKER) (test code = 670) LYMPHOCYTES ABSOLUTE COUNT 0.90 K/ L 1.18-3.74 L (BEAKER) (test code = 414) MONOCYTES ABSOLUTE COUNT (BEAKER) 0.11 K/ L 0.24-0.36 L (test code = 415) EOSINOPHILS ABSOLUTE COUNT 0.00 K/ L 0.04-0.36 L (BEAKER) (test code = 416) BASOPHILS ABSOLUTE COUNT (BEAKER) 0.01 K/ L 0.01-0.08 (test code = 417) IMMATURE GRANULOCYTES-RELATIVE 0 % 0-1 PERCENT (BEAKER) (test code = 4738)
--- OUTSIDE RECORDS SUMMARY | 2020-07-04 15:15 | XMS REPORT | Clinical Summary ---
:[address] [facility] Address [address] [place] [address] Care Team Providers Name Role Phone Unavailable Primary Care Provider Unavailable Allergies No Known Allergies Medications Medication Sig Dispensed Refills Start Date End Date Status montelukast Take 10 mg by 0 Acti ve (SINGULAIR) 10 mg mouth tablet nightly. albuterol HFA Inhale 1 puff 0 Ac tive (VENTOLIN HFA) 90 by mouth via mcg/actuation inhaler every inhaler 6 (six) hours as needed for Wheezing. zonisamide Take 1pill 70 capsule 0 09/03/2019 Active (ZONEGRAN) 100 MG daily for capsule 7days; THEN 1pill twice daily for 7d; THEN 1.5pill(=150m g) twice daily for 7d; THEN 2 pills(=200mg) twice daily. acetaZOLAMIDE Take 1 tablet 60 tablet 0 09/03/2019 10/03/2019 (DIAMOX) 125 MG (125 mg tablet total) by mouth 2 (two) times daily for 30 days. topiramate Take 1 tablet 60 tablet 0 09/03/2019 09/03/2019 Dis continued (TOPAMAX) 50 MG (50 mg total) tablet by mouth 2 (two) times daily for 30 days. Active Problems Problem Noted Date Pseudotumor cerebri 08/31/2019 Encounters Date Type Specialty Care Team Description 09/23/2019 Refill Internal Medicine Renetta Pearson MD 08/31/2019 - Hospital Encounter Cardiology Fanny Pugh Pseudo tumor cerebri; 09/03/2019 MD Jasmine CASS (obstructive sleep apnea) Emelyn Nicole MD Nalam, Roopa Lata, MD 08/31/2019 Travel after 07/04/2019 Family History Medical History Relation Name Comments Migraines Mother Migraines Sister Relation Name Status Comments Mother Sister Social History Tobacco Use Types Packs/Day Years Used Date Never Smoker Smokeless Tobacco: Never Used Alcohol Use Drinks/Week oz/Week Comments No Alcohol Habits Answer Date Recorded How often do you have a drink containing alcohol? Never 08/31/2019 How many drinks containing alcohol do you have on a typical Not asked day when you are drinking? How often do you have six or more drinks on one occasion? No t asked Sex Assigned at Date Recorded Not on file Job Start Date Occupation Industry Not on file Not on file Not on file Travel History Travel Start Travel End No recent travel history available. Last Filed Vital Signs Vital Sign Reading Time Taken Blood Pressure 109/59 09/03/2019 3:21 PM [employer] Pulse 74 09/03/2019 3:21 PM [employer] Temperature 36.1 C (97 F) 09/03/2019 3:21 PM [employer] Respiratory Rate 17 09/03/2019 3:21 PM [employer] Oxygen Saturation 100% 09/03/2019 3:21 PM [employer] Inhaled Oxygen Concentration - - Weight 101.9 kg (224 lb 9.6 oz) 09/01/2019 5:0 0 AM [employer] Height - - Body Mass Index - - Plan of Treatment Not on file Procedures Procedure Name Priority Date/Time Associated Comments Diagnosis REPORT OF PROCEDURE - 09/07/2019 9:55 ENDOSCOPY SCAN AM [employer] RHYTHM STRIP - SCAN 09/07/2019 9:54 AM [employer] RHYTHM STRIP - SCAN 09/06/2019 4:01 PM [employer] MAGNESIUM Routine 09/03/2019 5:50 Results for this AM [employer] procedure are i n the results section. BASIC METABOLIC PANEL Routine 09/03/2019 5:50 Re sults for this (7) AM [employer] procedure are i n the results section. HEPATIC FUNCTION Add-On 09/02/2019 4:30 Results for this PANEL AM [employer] procedure are i n the results section. MAGNESIUM Routine 09/02/2019 4:30 Results for this AM [employer] procedure are i n the results section. BASIC METABOLIC PANEL Routine 09/02/2019 4:30 Re sults for this (7) AM [employer] procedure are i n the results section. MRA HEAD WITHOUT IV STAT 09/01/2019 5:00 Resu lts for this CONTRAST PM [employer] procedure are i n the results section. SCREEN, Routine 09/01/2019 1:00 Result s for this URINE PM [employer] procedure are i n the results section. HEMOGLOBIN A1C Routine 09/01/2019 12:44 Results f or this PM [employer] procedure are i n the results section. MAGNESIUM Routine 09/01/2019 5:00 Results for this AM [employer] procedure are i n the results section. BASIC METABOLIC PANEL Routine 09/01/2019 5:00 Re sults for this (7) AM [employer] procedure are i n the results section. CBC W/PLT COUNT & Routine 09/01/2019 1:30 Result s for this AUTO DIFFERENTIAL AM [employer] procedure are in the results section. CBC W/PLT COUNT & Routine 09/01/2019 1:30 Result s for this AUTO DIFFERENTIAL AM [employer] procedure are in the results section. after 07/04/2019 Results EKG-SCANNED (09/07/2019 9:55 AM [employer] WORKER) Narrative Performed At This result has an attachment that is no t available. RHYTHM STRIP - SCAN (09/07/2019 9:54 AM [employer] WORKER)Only the most recent of2 results within the time period is included. Narrative Performed At This result has an attachment that is no t available. Magnesium (09/03/2019 5:50 AM [employer]IT WORKER)Only the most recent of3 resultswithin the time period is included. Magnesium 2.0 1.6 - 2.6 mg/dL [facility] Specimen Blood Performing Organization Address City/State/Zipcode Phone Number [facility] [address] [place] [address] CENTER Basic metabolic panel (09/03/2019 5:50 AM [employer]IT WORKER)Only the most recent of3 results within the time period is included. Sodium 135 (L) 136 - 145 meq/L [facility] Potassium 4.1 3.5 - 5.1 meq/L [facility] Chloride 112 (H) 98 - 107 meq/L [facility] CO2 17 (L) 22 - 29 meq/L [facility] BUN 14 7 - 21 mg/dL [facility] Creatinine 0.89 0.57 - 1.25 mg/dL [facility] Glucose 129 (H) 70 - 105 mg/dL [facility] Calcium 8.1 (L) 8.4 - 10.2 mg/dL [facility] H [facility] EGFR 94Comment: ESTIMATED GFR IS mL/min/1.73 sq m [facility] NOT ACCURATE CREATININE [facility] CLEARANCE IN PREDICTING GLOMERULAR FILTRATION RATE. ESTIMATED GFR IS NOT APPLICABLE FOR DIALYSIS PATIENTS. Specimen Blood Performing Organization Address City/[facility]/Zipcode Phone Number [address] [address] [place] Hepatic function panel (09/02/2019 4:30 AM [employer]IT WORKER) Protein, Total 7.1 6.0 - 8.3 gm/dL [facility] Albumin 3.6 3.5 - 5.0 g/dL [facility] Total Bilirubin 0.1 (L) 0.2 - 1.2 mg/dL [facility] Bilirubin, Direct 0.1 0.1 - 0.5 mg/dL [facility] Alkaline Phosphatase 112 40 - 150 U/L [facility] AST 13 5 - 34 U/L [facility] ALT 16 6 - 55 U/L [facility] Specimen Blood Performing Organization Address City/[facility]/Zipcode Phone Number [address] [address] [place] MRA head without IV contrast (09/01/2019 5:00 PM [employer]IT WORKER) Specimen Narrative Performed At FINAL REPORT [facility] MRV Head CLINICAL HISTORY:Suspect VST (venous sin us thrombosis) TECHNIQUE: MRA of the head using 3-D susan e-of-flight technique. MRV of the head utilizing 2-D hoju-wh-xawlza te chnique. COMPARISON: None FINDINGS: There is no evidence of intracranial ane urysm, focal stenosis, or major branch vessel occlusion. The major intradural venous sinuses in t brain are patent. IMPRESSION: Unremarkable MRA and MRV of the head. Signed: Sue Belcher MD Report Verified Date/Time:09/01/2019 17:26:44 Procedure Note Interface, External Ris In - 09/01/2019 5:28 PM [employer] FINAL REPORT MRV Head CLINICAL HISTORY:Suspect VST (venous sin us thrombosis) TECHNIQUE: MRA of the head using 3-D susan e-of-flight technique. MRV of the head utilizing 2-D qkpx-fu-wjvrft te chnique. COMPARISON: None FINDINGS: There is no evidence of intracranial ane urysm, focal stenosis, or major branch vessel occlusion. The major intradural venous sinuses in t he brain are patent. IMPRESSION: Unremarkable MRA and MRV of the head. Signed: Sue Belcher MD Report Verified Date/Time: 09/01/2019 1 7:26:44 Performing Organization Address City/[facility]/Zipcode Phone Number RIS Screen, urine (09/01/2019 1:00 PM TR[employer]IT WORKER) Preg Test, Ur Negative [facility] Specimen Urine Performing Organization Address [facility]/Zipcode Phone Number [address] [address] CENTER Hemoglobin A1c (09/01/2019 12:44 PM TR[employer]IT WORKER) Hemoglobin A1C 6.8 (H) 4.3 - 6.1 % [facility] Specimen Blood Performing Organization Address [facility] Phone Number [address] [address] C[place] CBC with platelet count + automated diff (09/01/2019 1:30 AM TRANSIT WORKER) WBC 5.2 3.5 - 10.5 K/L [facility] RBC 4.53 3.93 - 5.22 M/L [facility] Hemoglobin 11.6 11.2 - 15.7 GM/DL [facility] Hematocrit 37.1 34.1 - 44.9 % [facility] MCV 81.9 79.4 - 94.8 fL [facility] MCH 25.6 25.6 - 32.2 pg [facility] MCHC 31.3 (L) 32.2 - 35.5 GM/DL [facility] RDW 14.9 (H) 11.7 - 14.4 % [facility] Platelets 259 150 - 450 K/CU MM [facility] MPV 10.1 9.4 - 12.3 fL [facility] nRBC 0 0 - 0 /100 WBC [facility] % Neutros 80 % [facility] % Lymphs 17 % [facility] % Monos 2 % [facility] % Eos 0 % [facility] % Baso 0 % [facility] # Neutros 4.12 1.56 - 6.13 K/L [facility] # Lymphs 0.90 (L) 1.18 - 3.74 K/L [facility] # Monos 0.11 (L) 0.24 - 0.36 K/L [facility] # Eos 0.00 (L) 0.04 - 0.36 K/L [facility] # Baso 0.01 0.01 - 0.08 K/L [facility] Immature Granulocytes-Relative 0 0 - 1 % C [facility] Specimen Blood Performing Organization Address City/State/Zipcode Phone Number [facility] [address] [facility] [place] [address] CENTER after 07/04/2019 Insurance Payer Benefit Plan / Subscriber ID Type Phone Address Group [employer]UE [employer] xxxxxxxxxxxx PPO [phone] [id number] [employer] [place] [address] Advance Directives For more information, please contact:[address] [phone] Code Status Date Activated Date Inactivated Comments Full Code 08/31/2019 11:09 PM 09/03/2019 9:05 PM This code status was determined by: Patient
--- NOTE | 2020-07-04 16:38 | RAD REPORT ---
EXAM DESCRIPTION: RAD - Ankle Left 3 View - 07/04/2020 4:33 pm CLINICAL HISTORY: PAIN COMPARISON: No comparisons FINDINGS: Soft tissue swelling is seen about the ankle. No acute fracture or dislocation. Small calc aneal spurs.
--- NOTE | 2020-07-04 16:55 | ER ---
Nurse's Notes [facility] Name: Олег Newby Age: 25 yrs Sex: Female : 1995 Arrival Date: 07/04/2020 Time: 15:16 Bed 27 Private MD: Diagnosis: Sprain of ankle Presentation: 07/04 15:50 Chief complaint: Patient states: slipped on water yesterday, c/o pain in the left em ankle. Coronavirus screen: Client denies travel out of the [place] in the last 14 days. Ebola Screen: Patient negative for fever greater than or equal to 101.5 degrees Fahrenheit, and additional compatible Ebola Virus Disease symptoms Patient denies exposure to infectious person. Patient denies travel to an Ebola-affected area in the 21 days before illness onset. No symptoms or risks identified at this time. Initial Sepsis Screen: Does the patient meet any 2 criteria? No. Patient's initial sepsis screen is negative. Does the patient have a suspected source of infection? No. Patient's initial sepsis screen is negative. Risk Assessment: Do you want to hurt yourself or someone else? Patient reports no desire to harm self or others. Onset of symptoms was July 03, 2020. 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 - Social history:: Smoking status: Patient denies any tobacco usage or history of. Screenin:16 Abuse screen: Denies threats or abuse. Denies injuries from another. Nutritional hb screening: No deficits noted. Tuberculosis screening: No symptoms or risk factors identified. Fall Risk None identified. Assessment: 16:15 General: Appears in no apparent distress. Behavior is calm, cooperative. Pain: Pain hb currently is 8 out of 10 on a pain scale. Neuro: Level of Consciousness is awake, alert, obeys commands, Oriented to person, place, time, situation. Cardiovascular: Capillary refill < 3 seconds Patient's skin is warm and dry. Respiratory: Respiratory effort is even, unlabored, Respiratory pattern is regular, symmetrical. GI: No signs and/or symptoms were reported involving the gastrointestinal system. : No signs and/or symptoms were reported regarding the genitourinary system. EENT: No signs and/or symptoms were reported regarding the EENT system. Derm: Skin is pink, warm \T\ dry. Musculoskeletal: Reports left ankle pain. Vital Signs: 15:50 BP 118 / 74; Pulse 97; Resp 18; Temp 98.3(O); Pulse Ox 100% on R/A; Weight 106.59 kg; em Height 5 ft. 6 in. (167.64 cm); Pain 8/10; 15:50 Body Mass Index 37.93 (106.59 kg, 167.64 cm) em ED Course: 15:16 Patient arrived in ED. mr 15:48 Carline Dooley [facility]-C [facility]. kb 15:48 Abdelrahman Meyers MD is Attending Physician. kb 15:52 Triage completed. em 15:53 Arm band placed on. em 16:14 Dora Dupree, RN is Primary Nurse. hb 16:16 Patient has correct armband on for positive identification. Bed in low position. Call hb light in reach. 16:33 Ankle Left 3 View XRAY In Process Unspecified. EDMS 17:08 No provider procedures requiring assistance completed. Patient did not have IV access hb during this emergency room visit. Administered Medications: No medications were administered Outcome: 16:54 Discharge ordered by . kb 17:08 Discharged to home via wheelchair. hb 17:08 Condition: stable 17:08 Discharge instructions given to patient, Instructed on discharge instructions, follow up and referral plans. medication usage, Demonstrated understanding of instructions, follow-up care, medications. 17:09 Patient left the ED. hb Signatures: Dispatcher [employer] EDMD Carline Dooley FNP-C FNP-Ckb Jules Comfort lopez Bright Schaeffer, RN RN Dora Dupree, VASU RN hb
--- NOTE | 2020-07-04 16:55 | EDPHYS ---
Physician Documentation [facility] Name: Олег Newby Age: 25 yrs Sex: Female : 1995 Arrival Date: 07/04/2020 Time: 15:16 Bed 27 Private MD: ED Physician Abdelrahman Meyers HPI: 07/04 16:22 This 25 yrs old Black Female presents to ER via Wheelchair with complaints of Fall kb Injury, Leg Pain, Ankle Injury. 16:22 Details of fall: The patient fell from a height, down approximately 2 stairs. Onset: kb The symptoms/episode began/occurred yesterday. Associated injuries: The patient sustained left medial ankle, painful injury. Severity of symptoms: At their worst the symptoms were moderate, in the emergency department the symptoms are unchanged. The patient has not experienced similar symptoms in the past. The patient has not recently seen a physician. PT reports she fell down 2 steps and twisted her left ankle. c/o ankle pain only. PT is 30 weeks and was cleared by L\T\D prior to coming to ER. 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 - Social history:: Smoking status: Patient denies any tobacco usage or history of. ROS: 16:28 Constitutional: Negative for fever, chills, and weight loss, Cardiovascular: Negative kb for chest pain, palpitations, and edema, Respiratory: Negative for shortness of breath, cough, wheezing, and pleuritic chest pain, Abdomen/GI: Negative for abdominal pain, nausea, vomiting, diarrhea, and constipation, Back: Negative for injury and pain, Skin: Negative for injury, rash, and discoloration, Neuro: Negative for headache, weakness, numbness, tingling, and seizure. 16:28 MS/extremity: Positive for pain, tenderness, of the left medial ankle. Exam: 16:28 Constitutional: This is a well developed, well nourished patient who is awake, alert, kb and in no acute distress. Head/Face: Normocephalic, atraumatic. Chest/axilla: Normal chest wall appearance and motion. Nontender with no deformity. No lesions are appreciated. Cardiovascular: Regular rate and rhythm with a normal S1 and S2. No gallops, murmurs, or rubs. Normal PMI, no JVD. No pulse deficits. Respiratory: Lungs have equal breath sounds bilaterally, clear to auscultation and percussion. No rales, rhonchi or wheezes noted. No increased work of breathing, no retractions or nasal flaring. Abdomen/GI: Soft, non-tender, with normal bowel sounds. No distension or tympany. No guarding or rebound. No evidence of tenderness throughout. Skin: Warm, dry with normal turgor. Normal color with no rashes, no lesions, and no evidence of cellulitis. Neuro: Awake and alert, GCS 15, oriented to person, place, time, and situation. Cranial nerves II-XII grossly intact. Motor strength 5/5 in all extremities. Sensory grossly intact. Cerebellar exam normal. Normal gait. 16:28 Musculoskeletal/extremity: Extremities: grossly normal except: noted in the left medial ankle: pain, tenderness, ROM: intact in all extremities, Circulation is intact in all extremities. Sensation intact. Weight bearing: is unable to bear weight. Vital Signs: 15:50 BP 118 / 74; Pulse 97; Resp 18; Temp 98.3(O); Pulse Ox 100% on R/A; Weight 106.59 kg; em Height 5 ft. 6 in. (167.64 cm); Pain 8/10; 15:50 Body Mass Index 37.93 (106.59 kg, 167.64 cm) em MDM: 15:52 Patient medically screened. kb 16:21 Data reviewed: vital signs, nurses notes. Data interpreted: Pulse oximetry: on room air kb is 100 %. Interpretation: normal. Counseling: I had a detailed discussion with the patient and/or guardian regarding: the historical points, exam findings, and any diagnostic results supporting the discharge/admit diagnosis, radiology results, the need for outpatient follow up, a family practitioner, to return to the emergency department if symptoms worsen or persist or if there are any questions or concerns that arise at home. 07/04 15:52 Order name: Ankle Left 3 View XRAY; Complete Time: 16:39 kb 07/04 16:40 Order name: Wilmer Wrap; Complete Time: 16:58 kb Administered Medications: No medications were administered Disposition: 07/04/20 16:54 Discharged to Home. Impression: Sprain of ankle. - Condition is Stable. - Discharge Instructions: Ankle Sprain, [id number]. - Medication Reconciliation Form, Thank You Letter, Antibiotic Education, Prescription Opioid Use form. - Follow up: Emergency Department; When: As needed; Reason: Worsening of condition. Follow up: Private Physician; When: 2 - 3 days; Reason: Recheck today's complaints, Continuance of care, Re-evaluation by your physician. Signatures: Dispatcher [employer] Carline Platt, EVENT PRODUCER-C EVENT PRODUCER-Bright Magaña, RN RN Dora Perdue RN RN Corrections: (The following items were deleted from the chart) 17:09 16:54 07/04/2020 16:54 Discharged to Home. Impression: Sprain of ankle. Condition is hb Stable. Forms are Medication Reconciliation Form, Thank You Letter, Antibiotic Education, Prescription Opioid Use. Follow up: Emergency Department; When: As needed; Reason: Worsening of condition. Follow up: Private Physician; When: 2 - 3 days; Reason: Recheck today's complaints, Continuance of care, Re-evaluation by your physician. kb
[2020-07-04 17:15] VITALS: BP 118/74; TEMP 98.3; O2SAT 100
== END 2020-07-04 17:09 | disposition home or self-care (01) ==
LOC: ER 15:12
DX: O9A.213 Injury, poisoning and certain other consequences of external causes complicating pregnancy, third trimester (principal); S93.402A Sprain of unspecified ligament of left ankle, initial encounter; Z3A.30 30 weeks gestation of pregnancy; W10.9XXA Fall (on) (from) unspecified stairs and steps, initial encounter; Y93.9 Activity, unspecified; Y92.9 Unspecified place or not applicable
CPT/HCPCS: 99283